=== PATIENT | male | born 1945 | race Caucasian/White ===

== ENCOUNTER 2020-12-28 21:38 | Inpatient (IN) ==
[2020-12-28 21:50] VITALS: BMI 23.4
[2020-12-28 22:14] LABS: BASOPHILS # (AUTO) 0.1 X10^3/uL (0.0-0.1); BASOPHILS % (AUTO) 0.8 % (0.2-1.0); EOSINOPHILS # (AUTO) 0.5 x10^3/uL (0.0-0.2); EOSINOPHILS % (AUTO) 5.9 % (0.9-2.9); HEMATOCRIT 39.3 % (42.0-54.0); HEMOGLOBIN 13.7 g/dL (13.5-18.0); LYMPHOCYTES # (AUTO) 1.7 X10^3/uL (1.3-2.9); LYMPHOCYTES % (AUTO) 19.8 % (21.0-51.0); MEAN CORPUSCULAR HEMOGLOBIN 30.7 pg (27.0-34.0); MEAN CORPUSCULAR HGB CONC 34.8 g/dL (33.0-35.0); MEAN CORPUSCULAR VOLUME 88.1 fL (80.0-100.0); MEAN PLATELET VOLUME 6.5 fL (7.4-11.0); MONOCYTES # (AUTO) 0.8 x10^3/uL (0.3-0.8); MONOCYTES % (AUTO) 9.2 % (0.0-13.0); NEUTROPHILS # (AUTO) 5.4 x10^3/uL (2.2-4.8); NEUTROPHILS % (AUTO) 64.3 % (42.0-75.0); PLATELET COUNT 173 X10^3/uL (150.0-450.0); RED BLOOD COUNT 4.46 X10^6/uL (4.7-6.0); RED CELL DISTRIBUTION WIDTH 12.9 % (11.6-16.5); WHITE BLOOD COUNT 8.5 X10^3/uL (3.6-10.0)
[2020-12-28 22:16] LABS: ABG ALLEN TEST POS; ABG HCO3 25.5 mmol/L (22-26)
--- NOTE | 2020-12-28 22:17 | DR.SOBA ---
HPI Time Seen Time Seen by Provider: 12/28/20 21:50 Primary Care Physician Primary Care Physician: ANH HPI Comment HPI Comment: Patient sent in to ED by PCP after report of bilobar PE from CT scan performed earlier. Patient notes that he "feels fine." Complaints Chief Complaint:: PT AMBULATORY IN ED WITH STATED C/O BLOOD CLOTS IN LUNGS. PT WAS SENT OVER BY [facility] WITH CONFORMATION OF BILATERAL PE. Source History Provided: Patient Mode of Arrival Mode of Arrival: Ambulatory Timing Onset of Chief Complaint: 12/28/20 PMH PMH Past Medical History: Yes Past Medical History: COPD Past Surgical History: Yes Surgical History: Appendectomy Past Surgical History Comment: CATARACT IMPLANTS PROSTATE Family History History of Family Medical Conditions: Yes Family Medical History: Diabetes Mellitus Social History Does patient currently use any type of tobacco product: No Have you used tobacco products in the last 12 months: No Type of Tobacco Use: None Does any household member use tobacco: No Alcohol Use: None Do you use any recreational Drugs:: No Lives With: Family Lives Where: Home Infectious screening In the last 2 months have you had wt loss of >10#?: NO Have you had fever, night sweats or hemotysis?: No Have you traveled outside the country in the last 6 months?: No Isolation: Droplet ROS Review of Systems Constitutional: See HPI PE Vital Signs Vitals: Temperature 97.0 F Pulse Rate 85 Respiratory Rate 24 Blood Pressure [Left Arm] 148/70 Blood Pressure 170/81 O2 Sat by Pulse Oximetry 96 General Limitations: No Limitations General Appearance: Alert and In No Apparent Distress Head Head Exam: Normal Inspection, Atraumatic and Normocephalic Eyes Eye exam: Normal Appearance, PERRL and EOMI ENT ENT Exam: Normal Exam Neck Neck Exam: Normal Inspection and Trachea Midline Chest Chest Inspection: Normal Inspection and Symmetric Chest Wall Rise Respiratory Respiratory Exam: Normal Lung Sounds Bilat Respiratory Exam: Bilateral: Clear to Auscultation Cardiovascular Cardiovascular Exam: Regular Rate, Normal Rhythm and Normal Heart Sounds COURSE Reevaluation 1st: Unchanged Consultation Consultation Comments: Spoke with Dr. Michelle who accepts patient for admission to his service. [facility] Labs Reviewed Laboratory Results Reviewed?: Yes Result Diagrams: 12/28/20 22:02 12/28/20 22:02 Laboratory: WBC 8.5 X10^3/uL (3.6-10.0) 12/28/20 22:02 RBC 4.46 X10^6/uL (4.7-6.0) L 12/28/20 22:02 Hgb 13.7 g/dL (13.5-18.0) 12/28/20 22:02 Hct 39.3 % (42.0-54.0) L 12/28/20 22:02 MCV 88.1 fL (80.0-100.0) 12/28/20 22:02 MCH 30.7 pg (27.0-34.0) 12/28/20 22:02 MCHC 34.8 g/dL (33.0-35.0) 12/28/20 22:02 RDW 12.9 % (11.6-16.5) 12/28/20 22:02 Plt Count 173 X10^3/uL (150.0-450.0) 12/28/20 22:02 MPV 6.5 fL (7.4-11.0) L 12/28/20 22:02 Neut % (Auto) 64.3 % (42.0-75.0) 12/28/20 22:02 Lymph % (Auto) 19.8 % (21.0-51.0) L 12/28/20 22:02 Josephine % (Auto) 9.2 % (0.0-13.0) 12/28/20 22:02 Eos % (Auto) 5.9 % (0.9-2.9) H 12/28/20 22:02 Baso % (Auto) 0.8 % (0.2-1.0) 12/28/20 22:02 Neut # (Auto) 5.4 x10^3/uL (2.2-4.8) H 12/28/20 22:02 Lymph # (Auto) 1.7 X10^3/uL (1.3-2.9) 12/28/20 22:02 Josephine # (Auto) 0.8 x10^3/uL (0.3-0.8) 12/28/20 22:02 Eos # (Auto) 0.5 x10^3/uL (0.0-0.2) H 12/28/20 22:02 Baso # (Auto) 0.1 X10^3/uL (0.0-0.1) 12/28/20 22:02 Absolute Nucleated RBC 0.0 /100WBC 12/28/20 22:02 PT 13.0 SECONDS (11.8-14.3) 12/28/20 22:02 INR Target Range - 12/28/20 22:02 INR 1.01 (0.8-1.3) 12/28/20 22:02 Sample Site Lra 12/28/20 22:14 ABG pH 7.470 (7.35-7.45) H 12/28/20 22:14 ABG pCO2 35.0 mmHg (35.0-45.0) 12/28/20 22:14 ABG pO2 72.0 mmHg (80.0-100.0) L 12/28/20 22:14 ABG HCO3 25.5 mmol/L (22-26) 12/28/20 22:14 ABG O2 Saturation 95.0 % (90-100) 12/28/20 22:14 ABG Base Excess 2.0 mmol/L (-2.0-2.0) 12/28/20 22:14 Alexey Test Pos 12/28/20 22:14 A-a Gradient 34.0 mmHg 12/28/20 22:14 FiO2 21.0 12/28/20 22:14 Blood Gas Comments Johnie well mt 12/28/20 22:14 Sodium 138 mmol/L (136-145) 12/28/20 22:02 Corrected Sodium 139 mmol/L (136-145) 12/28/20 22:02 Potassium 3.8 mmol/L (3.5-5.1) 12/28/20 22:02 Chloride 103 mmol/L (98-107) 12/28/20 22:02 Carbon Dioxide 27.6 mmol/L (21-32) 12/28/20 22:02 BUN 11 mg/dL (7-18) 12/28/20 22:02 Creatinine 1.06 mg/dL (0.70-1.30) 12/28/20 22:02 Est GFR (MDRD) Af Amer > 60 (>60) 12/28/20 22:02 Est GFR (MDRD) Non-Af > 60 (>60) 12/28/20 22:02 Glucose 122 mg/dL (65-99) H 12/28/20 22:02 Calcium 9.3 mg/dL (8.5-10.1) 12/28/20 22:02 Corrected Calcium 10.2 mg/dL (8.5-10.1) H 12/28/20 22:02 Total Bilirubin 0.40 mg/dL (0.2-1.0) 12/28/20 22:02 AST 19 Units/L (15-37) 12/28/20 22:02 ALT 40 Units/L (12-78) 12/28/20 22:02 Alkaline Phosphatase 111 Units/L (46-116) 12/28/20 22:02 Total Protein 6.3 g/dL (6.4-8.2) L 12/28/20 22:02 Albumin 2.9 g/dL (3.4-5.0) L 12/28/20 22:02 Globulin 3.4 g/dL (2.5-4.5) 12/28/20 22:02 Albumin/Globulin Ratio 0.9 Ratio (1.1-2.1) L 12/28/20 22:02 Opioid Opioid Risk Tool Age (Santino box if 16-45): No History of Preadolescent Sexual Abuse: No Total: 0 Total Score Risk Category: Low Risk Copyright: Bashir RANKIN predicting aberrant behaviors Diagnosis Discharge Problem: COPD with hypoxia Pulmonary embolism Qualifiers: Pulmonary embolism type: multiple subsegmental (without acute cor pulmonale) Qualified Code(s): I26.94 - Multiple subsegmental pulmonary emboli without acute cor pulmonale
[2020-12-28 22:23] LABS: ALANINE AMINOTRANSFERASE 40 Units/L (12-78); ALBUMIN 2.9 g/dL (3.4-5.0); ALKALINE PHOSPHATASE 111 Units/L (46-116); ASPARTATE AMINO TRANSFERASE 19 Units/L (15-37); BLOOD UREA NITROGEN 11 mg/dL (7-18); CALCIUM 9.3 mg/dL (8.5-10.1); CARBON DIOXIDE 27.6 mmol/L (21-32); CHLORIDE 103 mmol/L (98-107); COR CA(FOR HYPOALB) 10.2 mg/dL (8.5-10.1); COR NA(FOR HYPERGLY) 139 mmol/L (136-145); CREATININE 1.06 mg/dL (0.70-1.30); SODIUM 138 mmol/L (136-145); TOTAL PROTEIN 6.3 g/dL (6.4-8.2); eGFR NON BLACK RACES > 60 (>60)
[2020-12-28] MEDS ORDERED: HEPARIN SODIUM IN D5W 25,000 UNITS/500 ML BAG IV ONE (23:10)
[2020-12-28] MEDS ORDERED: HEPARIN SODIUM INJ 5000 UNITS ONE (23:10)
[2020-12-28] MEDS ORDERED: HEPARIN SODIUM INJ 5000 UNITS IVP ONE (23:24)
[2020-12-28] MEDS: HEPARIN SODIUM IN D5W 25,000 UNITS/500 ML BAG IV PRN (23:28)
[2020-12-28] MEDS ORDERED: NS 1000 ML 1,000 ML ONE (23:30)
[2020-12-28] MEDS: NS 1000 ML 1,000 ML IV SCH (23:37)
[2020-12-29] MEDS ORDERED: PROVENTIL NEB TX 0.083% 2.5MG/ 3ML NEB PRN (05:14)
[2020-12-29 06:24] LABS: BASOPHILS % (AUTO) 0.4 % (0.2-1.0); EOSINOPHILS # (AUTO) 0.5 x10^3/uL (0.0-0.2); EOSINOPHILS % (AUTO) 5.6 % (0.9-2.9); HEMATOCRIT 40.8 % (42.0-54.0); HEMOGLOBIN 13.9 g/dL (13.5-18.0); LYMPHOCYTES # (AUTO) 1.7 X10^3/uL (1.3-2.9); LYMPHOCYTES % (AUTO) 20.1 % (21.0-51.0); MEAN CORPUSCULAR HEMOGLOBIN 30.1 pg (27.0-34.0); MEAN CORPUSCULAR HGB CONC 34.1 g/dL (33.0-35.0); MEAN CORPUSCULAR VOLUME 88.2 fL (80.0-100.0); MEAN PLATELET VOLUME 6.8 fL (7.4-11.0); MONOCYTES # (AUTO) 0.5 x10^3/uL (0.3-0.8); MONOCYTES % (AUTO) 6.4 % (0.0-13.0); NEUTROPHILS # (AUTO) 5.7 x10^3/uL (2.2-4.8); NEUTROPHILS % (AUTO) 67.5 % (42.0-75.0); PLATELET COUNT 186 X10^3/uL (150.0-450.0); RED BLOOD COUNT 4.63 X10^6/uL (4.7-6.0); RED CELL DISTRIBUTION WIDTH 13.3 % (11.6-16.5); WHITE BLOOD COUNT 8.5 X10^3/uL (3.6-10.0)
[2020-12-29] MEDS ORDERED: HEPARIN SODIUM INJ 5000 UNITS ONE ×4 (06:44→21:11)
[2020-12-29 06:45] LABS: ALANINE AMINOTRANSFERASE 45 Units/L (12-78); ALKALINE PHOSPHATASE 116 Units/L (46-116); ASPARTATE AMINO TRANSFERASE 26 Units/L (15-37); BLOOD UREA NITROGEN 11 mg/dL (7-18); CALCIUM 8.8 mg/dL (8.5-10.1); CARBON DIOXIDE 29.5 mmol/L (21-32); CHLORIDE 104 mmol/L (98-107); COR CA(FOR HYPOALB) 9.6 mg/dL (8.5-10.1); COR NA(FOR HYPERGLY) 139 mmol/L (136-145); CREATININE 0.87 mg/dL (0.70-1.30); SODIUM 139 mmol/L (136-145); TOTAL PROTEIN 6.7 g/dL (6.4-8.2); eGFR NON BLACK RACES > 60 (>60)
[2020-12-29] MEDS ORDERED: HEPARIN SODIUM INJ 5000 UNITS IVP ONE ×2 (07:10→14:10)
[2020-12-29] MEDS ORDERED: PROVENTIL NEB TX 0.083% 2.5MG/ 3ML NEB SCH ×2 (09:00)
[2020-12-29] MEDS ORDERED: TIOTROPIUM BROMIDE INH SCH (09:00)
[2020-12-29] MEDS ORDERED: VITAMIN D (1.25MG) PO SCH (09:00)
[2020-12-29] MEDS ORDERED: SPIRIVA HANDIHALER (30 DOSE) IN SCH (09:00)
[2020-12-29] MEDS ORDERED: PATIENT'S HOME MEDICATION (Budesonide-Formoterol 160 MCG/4.5 MCG HFA aerosol inhaler) INH SCH (09:00)
[2020-12-29] MEDS: PULMICORT NEB TX 0.5 MG NEB SCH ×2 (09:07→20:13)
[2020-12-29 09:19] LABS: CREATINE KINASE 33 Units/L (39-308); LACTATE DEHYDROGENASE 198 Units/L (85-227); TROPONIN I < 0.02 ng/mL (0-1.5)
[2020-12-29 09:20] LABS: TOTAL PSA 4.22 ng/mL (0.13-4.0)
[2020-12-29] MEDS ORDERED: LOPRESSOR TAB 25 MG PO ONE (09:26)
--- NOTE | 2020-12-29 09:36 | DR.H&P ---
H&P - History & Physical for Day of: H&P Date: 12/28/20 - Chief Complaint Chief Complaint: SOB, BLOOD CLOT IN LUNGS - History of Present Illness History of Present Illness: PT IS 75 WM ER ADMISSION WITH CO SOB FOR SEVERAL WEEKS, PROGRESSIVE. PT HAD CT CHEST IN [place] THIS AM, DX WITH PE AND INSTRUCTED TO REPORT TO ER FOR EVALUATION. PT STATES HE HAS HAD SOB SINCE WITH PNEUMONIA 2-3 TIMES SINCE THEN. PT HAS SEEN DR GTZ FOR CARDIAC EVALUATION, PENDING HEART CATH. PT DENIES ANY PRIOR HISTORY OF CAD. PT HAS KNOWN COPD, BPH AND RENAL CALCULI. - Past Medical History Past Medical History: COPD, Kidney Stones - Past Surgical History Surgical History: Appendectomy - Family History Family Medical History: Diabetes Mellitus - Social History Does patient currently use any type of tobacco product: No Have you used tobacco products in the last 12 months: No Type of Tobacco Use: None Does any household member use tobacco: No Alcohol Use: None Drug Use: None - Medications Home Medications: erythromycin base Allergy (Verified 04/11/18 07:57) Sulfa (Sulfonamide Antibiotics) [SULFA] Allergy (Verified 04/11/18 07:57) CONTINUE taking the following medications ergocalciferol (vitamin D2) [Vitamin D2] 50,000 mcg PO 2XW 12/28/20 [History] ipratropium-albuterol 3 ml INHALATION Q6H 12/28/20 [History] potassium chloride 10 meq PO BID 12/28/20 [History] rosuvastatin 10 mg PO HS 12/28/20 [History] tamsulosin 0.4 mg PO DAILY 12/28/20 [History] - Review of Systems Constitutional: Weakness Eyes: No Symptoms Reported ENT: No Symptoms Reported Respiratory: SOB with Excertion Cardiovascular: Palpitations. denies: Edema Gastrointestinal: Constipation Genitourinary: No Symptoms Reported Musculoskeletal: No Symptoms Reported Skin: No Symptoms Reported Neurological: No Symptoms Reported - Physical Exam Vital Signs: Temperature 97.8 F Pulse Rate [Right] 121 Pulse Rate 109 Respiratory Rate 20 Blood Pressure [Left Arm] 168/86 Blood Pressure 142/73 O2 Sat by Pulse Oximetry 93 Oriented: Normal Eyes: Normal Ear: Normal Nose: Normal Throat: Normal Respiratory: RML Diminished, RLL Diminished, LML Diminished Cardiovascular: Tachycardia. negative: Edema : Normal Auscultation: Bowel Sounds: Normal Palpation: Normal Tenderness: Normal Skin: Decreased Turgur Musculoskeletal: Normal Psychiatric: Anxiety Affect: Anxious Speech Pattern: Clear, Appropriate - Assessment/Plan (1) Pulmonary embolism Qualifiers: Pulmonary embolism type: multiple subsegmental (without acute cor pulmonale) Qualified Code(s): I26.94 - Multiple subsegmental pulmonary emboli without acute cor pulmonale Status: Acute Plan: ADMIT, ACUTE PE WITH HYPOXIA AND SOB. HEPARIN DRIP, CXR ON ADMISSION. OBTAIN OUTPT CT REPORTS, SUPPLEMENTAL O2, ABG ON ADMISSION. CONTINUOUS CARDIAC MONITORING. ADMISSION LABS, VERIFY AND RESUME HOME MEDICATION (2) Dyspnea Qualifiers: Dyspnea type: shortness of breath Qualified Code(s): R06.02 - Shortness of breath Status: Acute (3) BPH (benign prostatic hyperplasia) Status: Acute (4) COPD with hypoxia Status: Acute - Allergies Allergies/Adverse Reactions: Allergies Allergy/AdvReac Type Severity Reaction Status Date / Time erythromycin base Allergy Verified 04/11/18 07:57 Sulfa (Sulfonamide Allergy Verified 04/11/18 07:57 Antibiotics) [SULFA]
[2020-12-29] MEDS: FLOMAX PO SCH (09:49)
[2020-12-29] MEDS: COLACE CAP 100 MG PO SCH (09:51)
[2020-12-29] MEDS ORDERED: LOPRESSOR INJ 5 MG AMP IVP ONE (11:26)
[2020-12-29] MEDS ORDERED: LANOXIN INJ IVP SCH (12:00)
--- NOTE | 2020-12-29 12:11 | VAS ---
HISTORYPT HX PESTUDYLOWER EXT VENOUS, BILATERALCOMPARISONNoneTECHNIQUEMultiple gorman scale and color flow Doppler images of the deep venous system were obtained of the right and left lower extremity.FINDINGSThe deep venous system of the right and left lower extremities were evaluated from the level of the common femoral vein through the popliteal vein. Normal color flow and augmentation can be observed on the right.. In addition, normal compression is seen throughout the deep venous system of the right leg.On real-time scanning in the left lower extremity echogenic thrombus is seen in the left common femoral vein and greater saphenous junction. These vessels are noncompressible and demonstrates echogenic thrombus without flow. The proximal mid and distal superficial femoral vein popliteal vein and anterior tibial vein and popliteal vein are all normally compressible with normal vascular flow..IMPRESSIONNegative for DVT in the right lower extremity..There is acute thrombus in the left common femoral and greater saphenous vein proximally. Findings are positive for DVT in the left common femoral and greater saphenous vein proximally. Normal flow is seen in the superficial femoral popliteal and anterior tibial vein on the left.Electronically signed by: ANAID METZGER (Dec 29, 2020 12:10:10)
[2020-12-29] MEDS ORDERED: XOPENEX 1.25 MG/3 ML NEBULE NEB ONE (12:44)
[2020-12-29] MEDS: LANOXIN INJ IVP SCH ×2 (13:19→17:21)
[2020-12-29] MEDS: XOPENEX 1.25 MG/3 ML NEBULE NEB SCH ×2 (13:45→20:13)
[2020-12-29] MEDS: NS 1000 ML 1,000 ML IV SCH ×2 (14:14→14:41)
[2020-12-29 14:21] LABS: ERYTHROCYTE SEDIMENTATION RATE 29 MM/HOUR (0-15)
[2020-12-29] MEDS: Atrovent NEB TX 0.02% NEB SCH (20:13)
[2020-12-29] MEDS: LOPRESSOR TAB 25 MG PO SCH (20:36)
[2020-12-29] MEDS: CRESTOR TAB 10 MG PO SCH (20:36)
[2020-12-29] MEDS: HEPARIN SODIUM IN D5W 25,000 UNITS/500 ML BAG IV PRN (23:32)
[2020-12-30] MEDS: NS 1000 ML 1,000 ML IV SCH ×2 (01:04→17:06)
[2020-12-30 03:34] LABS: BASOPHILS # (AUTO) 0.1 X10^3/uL (0.0-0.1); BASOPHILS % (AUTO) 0.9 % (0.2-1.0); EOSINOPHILS # (AUTO) 0.5 x10^3/uL (0.0-0.2); EOSINOPHILS % (AUTO) 5.7 % (0.9-2.9); HEMATOCRIT 37.9 % (42.0-54.0); LYMPHOCYTES # (AUTO) 1.5 X10^3/uL (1.3-2.9); LYMPHOCYTES % (AUTO) 17.2 % (21.0-51.0); MEAN CORPUSCULAR HEMOGLOBIN 30.1 pg (27.0-34.0); MEAN CORPUSCULAR HGB CONC 34.2 g/dL (33.0-35.0); MEAN CORPUSCULAR VOLUME 87.9 fL (80.0-100.0); MEAN PLATELET VOLUME 6.8 fL (7.4-11.0); MONOCYTES # (AUTO) 0.6 x10^3/uL (0.3-0.8); MONOCYTES % (AUTO) 7.3 % (0.0-13.0); NEUTROPHILS # (AUTO) 5.8 x10^3/uL (2.2-4.8); NEUTROPHILS % (AUTO) 68.9 % (42.0-75.0); PLATELET COUNT 192 X10^3/uL (150.0-450.0); RED BLOOD COUNT 4.31 X10^6/uL (4.7-6.0); RED CELL DISTRIBUTION WIDTH 13.3 % (11.6-16.5); WHITE BLOOD COUNT 8.4 X10^3/uL (3.6-10.0)
[2020-12-30 03:44] LABS: ALANINE AMINOTRANSFERASE 44 Units/L (12-78); ALBUMIN 2.6 g/dL (3.4-5.0); ALKALINE PHOSPHATASE 100 Units/L (46-116); ASPARTATE AMINO TRANSFERASE 18 Units/L (15-37); BLOOD UREA NITROGEN 8 mg/dL (7-18); CALCIUM 8.7 mg/dL (8.5-10.1); CARBON DIOXIDE 25.5 mmol/L (21-32); CHLORIDE 106 mmol/L (98-107); COR CA(FOR HYPOALB) 9.8 mg/dL (8.5-10.1); COR NA(FOR HYPERGLY) 139 mmol/L (136-145); CREATININE 0.87 mg/dL (0.70-1.30); SODIUM 138 mmol/L (136-145); TOTAL PROTEIN 5.9 g/dL (6.4-8.2); eGFR NON BLACK RACES > 60 (>60)
[2020-12-30] MEDS: XOPENEX 1.25 MG/3 ML NEBULE NEB SCH ×3 (05:08→20:50)
[2020-12-30] MEDS: Atrovent NEB TX 0.02% NEB SCH ×2 (08:20→20:50)
[2020-12-30] MEDS: PULMICORT NEB TX 0.5 MG NEB SCH ×2 (08:20→20:50)
[2020-12-30] MEDS: FLOMAX PO SCH (08:21)
[2020-12-30] MEDS: COLACE CAP 100 MG PO SCH (08:21)
[2020-12-30] MEDS: LOPRESSOR TAB 25 MG PO SCH ×2 (08:21→20:17)
[2020-12-30] MEDS: ZOLOFT PO SCH (14:31)
[2020-12-30 14:55] LABS: ABG ALLEN TEST POS; ABG BASE EXCESS 0.5 mmol/L (-2.0-2.0); ABG HCO3 24.6 mmol/L (22-26)
[2020-12-30] MEDS: HEPARIN SODIUM IN D5W 25,000 UNITS/500 ML BAG IV PRN (18:09)
[2020-12-30] MEDS: CRESTOR TAB 10 MG PO SCH (20:17)
[2020-12-31] MEDS: NS 1000 ML 1,000 ML IV SCH ×3 (02:59→19:32)
[2020-12-31] MEDS: XOPENEX 1.25 MG/3 ML NEBULE NEB SCH ×3 (05:56→20:17)
[2020-12-31 06:11] LABS: BASOPHILS % (AUTO) 0.5 % (0.2-1.0); EOSINOPHILS # (AUTO) 0.4 x10^3/uL (0.0-0.2); EOSINOPHILS % (AUTO) 5.8 % (0.9-2.9); HEMATOCRIT 37.2 % (42.0-54.0); HEMOGLOBIN 12.7 g/dL (13.5-18.0); LYMPHOCYTES # (AUTO) 1.3 X10^3/uL (1.3-2.9); LYMPHOCYTES % (AUTO) 17.8 % (21.0-51.0); MEAN CORPUSCULAR HEMOGLOBIN 29.9 pg (27.0-34.0); MEAN CORPUSCULAR HGB CONC 34.1 g/dL (33.0-35.0); MEAN CORPUSCULAR VOLUME 87.8 fL (80.0-100.0); MONOCYTES # (AUTO) 0.6 x10^3/uL (0.3-0.8); MONOCYTES % (AUTO) 7.7 % (0.0-13.0); NEUTROPHILS # (AUTO) 5.1 x10^3/uL (2.2-4.8); NEUTROPHILS % (AUTO) 68.2 % (42.0-75.0); PLATELET COUNT 211 X10^3/uL (150.0-450.0); RED BLOOD COUNT 4.24 X10^6/uL (4.7-6.0); RED CELL DISTRIBUTION WIDTH 13.2 % (11.6-16.5); WHITE BLOOD COUNT 7.5 X10^3/uL (3.6-10.0)
[2020-12-31 06:17] LABS: ALANINE AMINOTRANSFERASE 41 Units/L (12-78); ALBUMIN 2.8 g/dL (3.4-5.0); ALKALINE PHOSPHATASE 107 Units/L (46-116); ASPARTATE AMINO TRANSFERASE 20 Units/L (15-37); BLOOD UREA NITROGEN 9 mg/dL (7-18); CALCIUM 9.1 mg/dL (8.5-10.1); CARBON DIOXIDE 24.4 mmol/L (21-32); CHLORIDE 104 mmol/L (98-107); COR CA(FOR HYPOALB) 10.1 mg/dL (8.5-10.1); COR NA(FOR HYPERGLY) 139 mmol/L (136-145); CREATININE 0.91 mg/dL (0.70-1.30); SODIUM 139 mmol/L (136-145); TOTAL PROTEIN 6.3 g/dL (6.4-8.2); eGFR NON BLACK RACES > 60 (>60)
[2020-12-31] MEDS: PULMICORT NEB TX 0.5 MG NEB SCH ×2 (08:59→20:17)
[2020-12-31] MEDS: Atrovent NEB TX 0.02% NEB SCH ×2 (08:59→20:17)
[2020-12-31] MEDS: ZOLOFT PO SCH (09:23)
[2020-12-31] MEDS: FLOMAX PO SCH (09:23)
[2020-12-31] MEDS: LOPRESSOR TAB 25 MG PO SCH ×2 (09:23→20:35)
[2020-12-31] MEDS: COLACE CAP 100 MG PO SCH (09:23)
[2020-12-31] MEDS ORDERED: DULCOLAX SUPPOSITORY 10 MG RECTAL ONE (09:57)
[2020-12-31] MEDS ORDERED: ELIQUIS PO SCH (11:00)
[2020-12-31] MEDS ORDERED: ELIQUIS PO NR (14:15)
[2020-12-31] MEDS ORDERED: MICRO K EXTEN CAP 10 MEQ PO PRN (19:43)
[2020-12-31] MEDS ORDERED: POTASSIUM CHL 60 MEQ/NS 0.45% 500 ML IV PRN (19:43)
[2020-12-31] MEDS ORDERED: POTASSIUM CHLORIDE LIQ 20 MEQ UDC PO PRN (19:43)
[2020-12-31] MEDS ORDERED: K-RIDER 10 MEQ/NS 100 ML 10 MEQ/100 ML BAG IV PRN (19:43)
[2020-12-31] MEDS ORDERED: K-DUR TAB 20 MEQ PO PRN (19:43)
[2020-12-31] MEDS ORDERED: POTASSIUM CHL 40 MEQ/NS 0.45% 500 ML IV PRN (19:43)
[2020-12-31] MEDS ORDERED: KLOR-CON PO PRN (19:43)
[2020-12-31] MEDS: MAGNESIUM SULFATE 1 GRAM/100 mL PREMIX 1 GM/100 ML BAG IV PRN ×2 (20:34→21:37)
[2020-12-31] MEDS: ELIQUIS PO SCH (20:35)
[2020-12-31] MEDS: CRESTOR TAB 10 MG PO SCH (20:35)
[2021-01-01] MEDS: XOPENEX 1.25 MG/3 ML NEBULE NEB SCH (05:00)
[2021-01-01] MEDS: NS 1000 ML 1,000 ML IV SCH (05:37)
[2021-01-01 06:01] VITALS: BP 121/69
[2021-01-01 06:19] LABS: ALANINE AMINOTRANSFERASE 45 Units/L (12-78); ALBUMIN 2.8 g/dL (3.4-5.0); ALKALINE PHOSPHATASE 111 Units/L (46-116); ASPARTATE AMINO TRANSFERASE 27 Units/L (15-37); BLOOD UREA NITROGEN 9 mg/dL (7-18); CALCIUM 8.8 mg/dL (8.5-10.1); CHLORIDE 106 mmol/L (98-107); COR CA(FOR HYPOALB) 9.8 mg/dL (8.5-10.1); CREATININE 0.98 mg/dL (0.70-1.30); MAGNESIUM 2.1 mg/dL (1.7-2.9); SODIUM 139 mmol/L (136-145); TOTAL PROTEIN 6.3 g/dL (6.4-8.2); eGFR NON BLACK RACES > 60 (>60)
[2021-01-01 06:21] LABS: BASOPHILS % (AUTO) 0.4 % (0.2-1.0); EOSINOPHILS # (AUTO) 0.4 x10^3/uL (0.0-0.2); EOSINOPHILS % (AUTO) 4.7 % (0.9-2.9); HEMATOCRIT 37.2 % (42.0-54.0); HEMOGLOBIN 12.5 g/dL (13.5-18.0); LYMPHOCYTES # (AUTO) 1.9 X10^3/uL (1.3-2.9); LYMPHOCYTES % (AUTO) 21.9 % (21.0-51.0); MEAN CORPUSCULAR HEMOGLOBIN 29.7 pg (27.0-34.0); MEAN CORPUSCULAR HGB CONC 33.6 g/dL (33.0-35.0); MEAN CORPUSCULAR VOLUME 88.4 fL (80.0-100.0); MEAN PLATELET VOLUME 6.8 fL (7.4-11.0); MONOCYTES # (AUTO) 0.7 x10^3/uL (0.3-0.8); MONOCYTES % (AUTO) 8.3 % (0.0-13.0); NEUTROPHILS # (AUTO) 5.6 x10^3/uL (2.2-4.8); NEUTROPHILS % (AUTO) 64.7 % (42.0-75.0); PLATELET COUNT 220 X10^3/uL (150.0-450.0); RED CELL DISTRIBUTION WIDTH 13.1 % (11.6-16.5); WHITE BLOOD COUNT 8.7 X10^3/uL (3.6-10.0)
[2021-01-01] MEDS: ELIQUIS PO SCH (08:31)
[2021-01-01] MEDS: COLACE CAP 100 MG PO SCH (08:31)
[2021-01-01] MEDS: LOPRESSOR TAB 25 MG PO SCH (08:32)
[2021-01-01] MEDS: FLOMAX PO SCH (08:32)
[2021-01-01] MEDS: ZOLOFT PO SCH (08:32)
[2021-01-01] MEDS: PULMICORT NEB TX 0.5 MG NEB SCH (08:50)
[2021-01-01] MEDS: Atrovent NEB TX 0.02% NEB SCH (08:50)
--- NOTE | 2021-01-01 10:39 | W.DIS.FURT ---
Summary of Discharge Discharge Summary of Date Date of Exam: 01/01/21 Admission Date Date of Admission: 12/28/20 Admission Diagnosis Patient Problems (Updated 12/29/20 @ 09:39 by SEPIDEH LYNNE) Dyspnea (Acute) R06.00 COPD with hypoxia (Acute) J44.9, R09.02 Pulmonary embolism (Acute) I26.99 BPH (benign prostatic hyperplasia) (Acute) N40.0 Hospital Course: Pt is a 75-year-old white male admitted for pulmonary emboli on Right, DVT left lower extremity deep vein thrombosis, and paroxysmal atrial fibrillation. He was started on heparin drip and was converted to eliquis for anticoagulation. He re sponded well to treatment with improved respiratory symptoms and back to baseline O2 requirement of 2 L of supplemental oxygen that he was previously on due to history of chronic obstructive pulmonary disease. He was treated with Lopressor 25mg BID that has controlled his heart rate. He was also started on zoloft for his mood. Labs/imaging: Wbc 8.7, Hgb 12.5, Plt 220, Na 139, K 4, Cr 0.98, Glucose 105. Rx Eliquis, Lopressor, and Zoloft. CT Chest did recommend repeat CT in 90 days due to lung parenchymal abnormalities. Pt was discharged in stable condition, instructed to follow up with pcp in 3-5 days. Vital Signs: Vital Signs (72 hours) 12/29/20 11:00 12/29/20 12:00 12/29/20 12:20 Temperature Pulse Rate Pulse Rate [Right] 92 H 87 Respiratory Rate 20 22 Blood Pressure 188/80 Blood Pressure [Left Arm] 188/80 110/63 O2 Sat by Pulse Oximetry 94 L 93 L 12/29/20 13:00 12/29/20 13:19 12/29/20 13:45 Temperature Pulse Rate 123 H 120 H Pulse Rate [Right] 104 H Respiratory Rate 22 Blood Pressure Blood Pressure [Left Arm] 113/70 O2 Sat by Pulse Oximetry 94 L 94 L 12/29/20 14:00 12/29/20 15:00 12/29/20 16:00 Temperature 97.8 F Pulse Rate Pulse Rate [Right] 76 74 87 Respiratory Rate 20 20 22 Blood Pressure Blood Pressure [Left Arm] 136/72 127/71 141/70 O2 Sat by Pulse Oximetry 94 L 96 97 12/29/20 17:00 12/29/20 17:21 12/29/20 18:00 Temperature Pulse Rate 76 Pulse Rate [Right] 76 79 Respiratory Rate 20 20 Blood Pressure Blood Pressure [Left Arm] 124/67 134/67 O2 Sat by Pulse Oximetry 94 L 96 12/29/20 19:00 12/29/20 20:00 12/29/20 20:13 Temperature 98.0 F Pulse Rate 83 Pulse Rate [Right] 70 74 Respiratory Rate 18 20 Blood Pressure Blood Pressure [Left Arm] 130/60 115/58 O2 Sat by Pulse Oximetry 96 96 97 12/29/20 21:00 12/29/20 22:00 12/29/20 23:00 Temperature 97.7 F Pulse Rate Pulse Rate [Right] 76 74 70 Respiratory Rate 20 20 20 Blood Pressure Blood Pressure [Left Arm] 121/59 136/73 157/70 O2 Sat by Pulse Oximetry 96 94 L 98 12/30/20 00:00 12/30/20 01:00 12/30/20 02:00 Temperature Pulse Rate Pulse Rate [Right] 71 62 73 Respiratory Rate 20 20 20 Blood Pressure Blood Pressure [Left Arm] 143/70 133/68 106/58 O2 Sat by Pulse Oximetry 95 96 96 12/30/20 03:00 12/30/20 04:00 12/30/20 05:00 Temperature 98.5 F Pulse Rate Pulse Rate [Right] 70 72 75 Respiratory Rate 18 18 20 Blood Pressure Blood Pressure [Left Arm] 131/72 128/57 129/71 O2 Sat by Pulse Oximetry 96 94 L 95 12/30/20 05:08 12/30/20 06:00 12/30/20 07:00 Temperature Pulse Rate 80 Pulse Rate [Right] 68 81 Respiratory Rate 18 19 Blood Pressure Blood Pressure [Left Arm] 150/68 134/70 O2 Sat by Pulse Oximetry 98 98 97 12/30/20 08:00 12/30/20 08:20 12/30/20 09:00 Temperature 98.0 F Pulse Rate 88 Pulse Rate [Right] 88 73 Respiratory Rate 19 18 Blood Pressure Blood Pressure [Left Arm] 135/60 121/66 O2 Sat by Pulse Oximetry 96 95 96 12/30/20 10:00 12/30/20 11:00 12/30/20 12:00 Temperature 98.3 F Pulse Rate Pulse Rate [Right] 72 73 73 Respiratory Rate 19 19 20 Blood Pressure Blood Pressure [Left Arm] 153/70 131/61 133/63 O2 Sat by Pulse Oximetry 96 97 96 12/30/20 13:00 12/30/20 14:00 12/30/20 15:00 Temperature Pulse Rate Pulse Rate [Right] 79 80 81 Respiratory Rate 18 18 19 Blood Pressure Blood Pressure [Left Arm] 116/63 118/62 120/59 O2 Sat by Pulse Oximetry 97 97 96 12/30/20 16:00 12/30/20 17:00 12/30/20 18:00 Temperature 99.4 F Pulse Rate Pulse Rate [Right] 81 79 80 Respiratory Rate 18 20 20 Blood Pressure Blood Pressure [Left Arm] 125/63 138/65 135/66 O2 Sat by Pulse Oximetry 96 95 96 12/30/20 19:00 12/30/20 20:00 12/30/20 20:50 Temperature 98.2 F Pulse Rate 72 Pulse Rate [Right] 83 82 Respiratory Rate 21 20 Blood Pressure Blood Pressure [Left Arm] 127/62 132/67 O2 Sat by Pulse Oximetry 94 L 93 L 95 12/30/20 21:00 12/30/20 22:00 12/30/20 23:00 Temperature 97.7 F Pulse Rate Pulse Rate [Right] 68 70 90 Respiratory Rate 20 20 20 Blood Pressure Blood Pressure [Left Arm] 137/60 135/67 138/68 O2 Sat by Pulse Oximetry 91 L 98 12/31/20 00:00 12/31/20 01:00 12/31/20 02:00 Temperature Pulse Rate Pulse Rate [Right] 72 68 69 Respiratory Rate 20 18 18 Blood Pressure Blood Pressure [Left Arm] 132/79 133/72 129/68 O2 Sat by Pulse Oximetry 94 L 90 L 93 L 12/31/20 03:00 12/31/20 04:00 12/31/20 05:00 Temperature 98.2 F Pulse Rate Pulse Rate [Right] 59 L 73 95 H Respiratory Rate 18 19 19 Blood Pressure Blood Pressure [Left Arm] 104/57 134/68 136/67 O2 Sat by Pulse Oximetry 93 L 95 97 12/31/20 05:56 12/31/20 06:00 12/31/20 07:00 Temperature 97.5 F L Pulse Rate 77 Pulse Rate [Right] 86 88 Respiratory Rate 20 20 Blood Pressure Blood Pressure [Left Arm] 153/74 140/71 O2 Sat by Pulse Oximetry 97 97 92 L 12/31/20 08:00 12/31/20 08:59 12/31/20 09:00 Temperature Pulse Rate 80 Pulse Rate [Right] 73 76 Respiratory Rate 20 19 Blood Pressure Blood Pressure [Left Arm] 143/68 139/79 O2 Sat by Pulse Oximetry 92 L 95 91 L 12/31/20 10:00 12/31/20 11:00 12/31/20 12:00 Temperature 98.3 F Pulse Rate Pulse Rate [Right] 70 73 78 Respiratory Rate 18 18 19 Blood Pressure Blood Pressure [Left Arm] 146/70 139/67 154/73 O2 Sat by Pulse Oximetry 93 L 96 87 L 12/31/20 13:00 12/31/20 14:00 12/31/20 15:00 Temperature 98.3 F Pulse Rate Pulse Rate [Right] 71 68 70 Respiratory Rate 18 18 18 Blood Pressure Blood Pressure [Left Arm] 117/63 124/64 139/66 O2 Sat by Pulse Oximetry 92 L 99 89 L 12/31/20 16:00 12/31/20 17:00 12/31/20 18:00 Temperature 98.3 F Pulse Rate Pulse Rate [Right] 85 63 81 Respiratory Rate 19 18 18 Blood Pressure Blood Pressure [Left Arm] 118/58 136/66 117/59 O2 Sat by Pulse Oximetry 93 L 94 L 95 12/31/20 19:00 12/31/20 20:00 12/31/20 20:17 Temperature 98.4 F Pulse Rate 80 Pulse Rate [Right] 74 76 Respiratory Rate 18 18 Blood Pressure Blood Pressure [Left Arm] 128/70 146/69 O2 Sat by Pulse Oximetry 95 96 93 L 12/31/20 21:00 12/31/20 22:00 12/31/20 23:00 Temperature 98.2 F Pulse Rate Pulse Rate [Right] 64 63 64 Respiratory Rate 19 18 18 Blood Pressure Blood Pressure [Left Arm] 117/67 124/74 111/59 O2 Sat by Pulse Oximetry 96 96 96 01/01/21 00:00 01/01/21 01:00 01/01/21 02:00 Temperature Pulse Rate Pulse Rate [Right] 65 78 80 Respiratory Rate 19 19 20 Blood Pressure Blood Pressure [Left Arm] 108/59 104/63 110/65 O2 Sat by Pulse Oximetry 96 90 L 90 L 01/01/21 03:00 01/01/21 04:00 01/01/21 05:00 Temperature 98.3 F Pulse Rate 80 Pulse Rate [Right] 64 70 82 Respiratory Rate 20 20 20 Blood Pressure Blood Pressure [Left Arm] 106/58 118/67 118/65 O2 Sat by Pulse Oximetry 95 95 94 L 01/01/21 06:00 01/01/21 08:50 Temperature Pulse Rate 74 Pulse Rate [Right] 75 Respiratory Rate 20 Blood Pressure Blood Pressure [Left Arm] 121/69 O2 Sat by Pulse Oximetry 94 L 94 L Labs: Laboratory Last Values WBC 8.7 X10^3/uL (3.6-10.0) 01/01/21 05:30 RBC 4.20 X10^6/uL (4.7-6.0) L 01/01/21 05:30 Hgb 12.5 g/dL (13.5-18.0) L 01/01/21 05:30 Hct 37.2 % (42.0-54.0) L 01/01/21 05:30 MCV 88.4 fL (80.0-100.0) 01/01/21 05:30 MCH 29.7 pg (27.0-34.0) 01/01/21 05:30 MCHC 33.6 g/dL (33.0-35.0) 01/01/21 05:30 RDW 13.1 % (11.6-16.5) 01/01/21 05:30 Plt Count 220 X10^3/uL (150.0-450.0) 01/01/21 05:30 MPV 6.8 fL (7.4-11.0) L 01/01/21 05:30 Neut % (Auto) 64.7 % (42.0-75.0) 01/01/21 05:30 Lymph % (Auto) 21.9 % (21.0-51.0) 01/01/21 05:30 [place] % (Auto) 8.3 % (0.0-13.0) 01/01/21 05:30 Eos % (Auto) 4.7 % (0.9-2.9) H 01/01/21 05:30 Baso % (Auto) 0.4 % (0.2-1.0) 01/01/21 05:30 Neut # (Auto) 5.6 x10^3/uL (2.2-4.8) H 01/01/21 05:30 Lymph # (Auto) 1.9 X10^3/uL (1.3-2.9) 01/01/21 05:30 [place] # (Auto) 0.7 x10^3/uL (0.3-0.8) 01/01/21 05:30 Eos # (Auto) 0.4 x10^3/uL (0.0-0.2) H 01/01/21 05:30 Baso # (Auto) 0.0 X10^3/uL (0.0-0.1) 01/01/21 05:30 Absolute Nucleated RBC 0.0 /100WBC 01/01/21 05:30 ESR 29 MM/HOUR (0-15) H 12/29/20 13:03 PT 13.0 SECONDS (11.8-14.3) 12/28/20 22:02 INR Target Range - 12/28/20 22:02 INR 1.01 (0.8-1.3) 12/28/20 22:02 APTT 34.0 SECONDS (22.9-36.5) 01/01/21 05:30 PTT Comment - 01/01/21 05:30 Sample Site Lrad 12/30/20 14:48 ABG pH 7.430 (7.35-7.45) 12/30/20 14:48 ABG pCO2 37.0 mmHg (35.0-45.0) 12/30/20 14:48 ABG pO2 78.0 mmHg (80.0-100.0) L 12/30/20 14:48 ABG HCO3 24.6 mmol/L (22-26) 12/30/20 14:48 ABG O2 Saturation 96.0 % (90-100) 12/30/20 14:48 ABG Base Excess 0.5 mmol/L (-2.0-2.0) 12/30/20 14:48 Alexey Test Pos 12/30/20 14:48 A-a Gradient 75.0 mmHg 12/30/20 14:48 FiO2 28.0 12/30/20 14:48 Blood Gas Comments Pt krishna well 12/30/20 14:48 Sodium 139 mmol/L (136-145) 01/01/21 05:30 Corrected Sodium TNP 01/01/21 05:30 Potassium 4.0 mmol/L (3.5-5.1) 01/01/21 05:30 Chloride 106 mmol/L (98-107) 01/01/21 05:30 Carbon Dioxide 26.0 mmol/L (21-32) 01/01/21 05:30 BUN 9 mg/dL (7-18) 01/01/21 05:30 Creatinine 0.98 mg/dL (0.70-1.30) 01/01/21 05:30 Est GFR (MDRD) Af Amer > 60 (>60) 01/01/21 05:30 Est GFR (MDRD) Non-Af > 60 (>60) 01/01/21 05:30 Glucose 105 mg/dL (65-99) H 01/01/21 05:30 POC Glucose (mg/dL) 111 mg/dL (65-99) H 01/01/21 05:39 Calcium 8.8 mg/dL (8.5-10.1) 01/01/21 05:30 Corrected Calcium 9.8 mg/dL (8.5-10.1) 01/01/21 05:30 Magnesium 2.1 mg/dL (1.7-2.9) 01/01/21 05:30 Total Bilirubin 0.40 mg/dL (0.2-1.0) 01/01/21 05:30 AST 27 Units/L (15-37) 01/01/21 05:30 ALT 45 Units/L (12-78) 01/01/21 05:30 Alkaline Phosphatase 111 Units/L (46-116) 01/01/21 05:30 Lactate Dehydrogenase 198 Units/L (85-227) 12/29/20 05:40 Creatine Kinase 33 Units/L (39-308) L 12/29/20 05:40 CK-MB (CK-2) 1.0 ng/mL (0-4.0) 12/29/20 05:40 CK/CKMB % Calc 3.0 % (<4) 12/29/20 05:40 Troponin I < 0.02 ng/mL (0-1.5) 12/29/20 05:40 C-Reactive Protein 20.50 mg/L (0-3.0) H 12/29/20 13:03 Total Protein 6.3 g/dL (6.4-8.2) L 01/01/21 05:30 Albumin 2.8 g/dL (3.4-5.0) L 01/01/21 05:30 Globulin 3.5 g/dL (2.5-4.5) 01/01/21 05:30 Albumin/Globulin Ratio 0.8 Ratio (1.1-2.1) L 01/01/21 05:30 Total PSA 4.22 ng/mL (0.13-4.0) H 12/29/20 05:40 Stool Description 10g brn formed 12/31/20 12:18 Stl Occult Blood (IFOB) Negative (NEGATIVE) 12/31/20 12:18 SARS-CoV-2 (PCR) Negative (NEGATIVE) 12/28/20 22:57 Influenza Type A (PCR) Negative (NEGATIVE) 12/28/20 22:57 Influenza Type B (PCR) Negative (NEGATIVE) 12/28/20 22:57 RSV (PCR) Negative (NEGATIVE) 12/28/20 22:57 Reason For Visit: BILOBAR PE Discharge Date Discharge Date: 01/01/21 Discharge Diagnosis All Active Problems (Updated 12/29/20 @ 09:39 by SEPIDEH LYNNE) Pneumonia (Acute) Acute right flank pain (Acute) Calculus of distal right ureter (Acute) Urinary obstruction (Acute) Pneumonia, viral (Acute) Dyspnea (Acute) COPD with hypoxia (Acute) Pulmonary embolism (Acute) BPH (benign prostatic hyperplasia) (Acute) Plan of Treatment: Continue with present treatment and follow up plan. Pt is to keep follow up appointment as instructed and take medications as ordered. Discharge Medications Discharge Medications: erythromycin base Allergy (Verified 04/11/18 07:57) Sulfa (Sulfonamide Antibiotics) [SULFA] Allergy (Verified 04/11/18 07:57) CONTINUE taking the following medications ergocalciferol (vitamin D2) [Vitamin D2] 50,000 mcg PO 2XW 12/28/20 [History] ipratropium-albuterol 3 ml INHALATION Q6H 12/28/20 [History] potassium chloride 10 meq PO BID 12/28/20 [History] rosuvastatin 10 mg PO HS 12/28/20 [History] tamsulosin 0.4 mg PO DAILY 12/28/20 [History] Spiriva with HandiHaler 18 mcg INHALATION DAILY 12/29/20 [History] New Prescriptions apixaban [Eliquis] 5 mg PO BID #60 tab 12/31/20 [Rx] metoprolol tartrate 25 mg PO BID #60 tab 12/31/20 [Rx] sertraline 25 mg PO DAILY #30 tab 12/31/20 [Rx] Discharge Disposition Discharge Disposition: Home Discharge Condition: Stable Discharge Plan Discharge Plan Hospital Course: Pt is a 75-year-old white male admitted for pulmonary emboli on Right, DVT left lower extremity deep vein thrombosis, and paroxysmal atrial fibrillation. He was started on heparin drip and was converted to eliquis for anticoagulation. He responded well to treatment with improved respiratory symptoms and back to baseline O2 requirement of 2 L of supplemental oxygen that he was previously on due to history of chronic obstructive pulmonary disease. He was treated with Lopressor 25mg BID that has controlled his heart rate. He was also started on zoloft for his mood. Labs/imaging: Wbc 8.7, Hgb 12.5, Plt 220, Na 139, K 4, Cr 0.98, Glucose 105. Rx Eliquis, Lopressor, and Zoloft. CT Chest did recommend repeat CT in 90 days due to lung parenchymal abnormalities. Pt was discharged in stable condition, instructed to follow up with pcp in 3-5 days. Patient Disposition: 01 HOME, SELF-CARE Condition: Stable Health Concerns: Post Hospitalization: new medications and changes needed to prevent readmission or further decline. Pt educated and given instructions on all concerns. Care Plan Goals: Problem: Respiratory Complications Goal: Improved Uncomplicated Respiratory Status Instructions: Follow provided instructions. Follow up with primary physician as directed. Contact primary care physician or report to the closest Emergency Room if condition worsens. Plan of Treatment: Continue with present treatment and follow up plan. Pt is to keep follow up appointment as instructed and take medications as ordered. Prescriptions: New metoprolol tartrate 25 mg Tablet 25 mg PO BID Qty: 60 RF: 0 sertraline 50 mg Tablet 25 mg PO DAILY Qty: 30 RF: 0 Eliquis 5 mg Tablet 5 mg PO BID Qty: 60 RF: 0 Continued Spiriva with HandiHaler 18 MCG capsule, w/inhalation device 18 mcg INH DAILY RF: 0 budesonide-formoterol [Symbicort] 160 MCG/4.5 MCG HFA aerosol inhaler 160 mcg INH DAILY RF: 0 albuterol sulfate 90 mcg/actuation aerosol powdr breath activated 2 inh IN Q6H PRN (Reason: shortness of breath or wheezing) Qty: 1 RF: 0 potassium chloride 10 mEq capsule, extended release 10 meq PO BID RF: 0 ipratropium-albuterol 0.5 mg-3 mg(2.5 mg base)/3 mL solution for nebulization 3 ml INHALATION Q6H RF: 0 tamsulosin 0.4 mg capsule 0.4 mg PO DAILY RF: 0 ergocalciferol (vitamin D2) [Vitamin D2] 1,250 mcg (50,000 unit) capsule 50,000 mcg PO 2XW RF: 0 rosuvastatin 10 mg tablet 10 mg PO HS RF: 0 Spiriva with HandiHaler 18 mcg Capsule, W/Inhalation Device 18 mcg INHALATION DAILY RF: 0 Follow ups/Referrals Follow ups/Referrals: ESPIDEH LYNNE [Primary Care Provider] - 3 days Instructions Instructions: Shortness of Breath, Adult, [id number], Home Oxygen Use, Adult, Pulmonary Embolism, Chronic Obstructive Pulmonary Disease, [id number], Activated Clotting Time Test, Chronic Obstructive Pulmonary Disease Exacerbation, [id number], Bleeding Precautions When on Anticoagulant Therapy, Adult, Form - COPD Action Plan, Partial Thromboplastin Time Test, Deep Vein Thrombosis, Atrial Fibrillation, [id number]-[id number], Venous Thromboembolism Prevention Activity Restrictions/Additional Instructions: USE SUPPLEMENTAL O2 FU UP WITH SCIENTIFIC MANAGER FU WITH ULISSES, FOR EVALUATION AFIB CONTINUE ELIQUIS, METOPROLOL Stand Alone Forms: Excuse From Work or School, Precautions for COVID19, Patient Portal, Social Distancing
[2021-01-08 10:21] LABS: ANTI-NUCLEAR ANTIBODY TEST None Detected (None Detected)
[2021-01-08 10:29] LABS: PROTEIN C ACTIVITY 164 % (83-168)
[2021-01-10 07:50] LABS: REPTILASE TIME 14.9; THROMBIN TIME 23.9
[2021-01-10 07:51] LABS: PTT-D HEPARIN NEUT 39
[2021-01-12 06:27] LABS: PROTHROMBIN G20210A Negative
== END 2021-01-01 11:40 | disposition home or self-care (01) | DRG 176 ==
LOC: ER 21:45 → OBS 22:47 → MED/SURG 12-29 14:50
PROVIDERS: ADMIT Family Medicine; ATTEND Internal Medicine
DX: I48.91 Unspecified atrial fibrillation; R79.1 Abnormal coagulation profile; R79.82 Elevated C-reactive protein (CRP); I82.412 Acute embolism and thrombosis of left femoral vein; R06.02 Shortness of breath; R70.0 Elevated erythrocyte sedimentation rate; I82.492 Acute embolism and thrombosis of other specified deep vein of left lower extremity; N40.0 Benign prostatic hyperplasia without lower urinary tract symptoms; R97.20 Elevated prostate specific antigen [PSA]; I26.94 Multiple subsegmental thrombotic pulmonary emboli without acute cor pulmonale; Z20.822 Contact with and (suspected) exposure to COVID-19; J44.9 Chronic obstructive pulmonary disease, unspecified; F41.8 Other specified anxiety disorders; R26.89 Other abnormalities of gait and mobility

== ENCOUNTER 2021-03-06 15:03 | Observation (INO) ==
[2021-03-06 15:12] VITALS: BMI 24.5
--- NOTE | 2021-03-06 15:17 | DR.SOBA ---
HPI Time Seen Time Seen by Provider: 03/06/21 15:17 Primary Care Physician Primary Care Physician: SERENITY UNGER HPI Comment HPI Comment: 76 yo m w/ pmh PE, ? hx of afib presents w/ approx 8 hr hx of gradual onset/ progressive SOB. Worsening dyspnea t/o the day today a/w diaphoresis. No palpitations, syncope or chest pain. Recently treated for bronchitis by pcp with rocephin and Levaquin. Denies orthopnea, f/c, abd pain, n/v. Complaints Chief Complaint:: PT C/O SUDDEN ONSET OF SHORTNESS OF BREATH THAT STARTED THIS MORNING. Self Treatment fo Chief Complaint: PT DID HAVE DIARRHEA AND SHORTNESS OF BREATH FOR 1 WEEK. SAW PCP ON SUNDAY AND WAS GIVEN A SHOT OF ROCEPHIN AND SENT HOME ON LEVAQUIN AND STEROIDS. Source History Provided: Patient Mode of Arrival Mode of Arrival: Ambulatory Timing Onset of Chief Complaint: 03/06/21 PMH PMH Past Medical History: Yes Past Medical History: COPD and Kidney Stones Past Medical History Comment: PULMONARY EMBOLISM Past Surgical History: Yes Surgical History: Appendectomy, Ortho Surgery and Lithotripsy Past Surgical History Comment: PROSTATE SURGERY Family History History of Family Medical Conditions: No Family Medical History: Diabetes Mellitus Social History Does patient currently use any type of tobacco product: No Have you used tobacco products in the last 12 months: No Type of Tobacco Use: None Does any household member use tobacco: No Alcohol Use: None Do you use any recreational Drugs:: No Lives With: Family Lives Where: Home Infectious screening In the last 2 months have you had wt loss of >10#?: NO Have you had fever, night sweats or hemotysis?: No Have you traveled outside the country in the last 6 months?: No Isolation: Standard ROS Review of Systems Constitutional: No Symptoms Reported Eyes: No Symptoms Reported ENTM: No Symptoms Reported Respiratoy: Short of Breath; negative Productive Cough, Non-Productive Cough and Dry Cough Cardiovascular: No Symptoms Reported; negative Chest Pain, Palpitations and Syncope Gastrointestinal/Abdominal: No Symptoms Reported Genitourinary: No Symptoms Reported Neurological: No Symptoms Reported Musculoskeletal: No Symptoms Reported Integumentary: No Symptoms Reported Hematologic/Lymphatic: No Symptoms Reported Endocrine: No Symptoms Reported Psychiatric: No Symptoms Reported All Other Systems: Reviewed and Negative PE Vital Signs Vitals: Temperature 36.7 C Pulse Rate 99 Respiratory Rate 19 Blood Pressure [Left Arm] 121/69 Blood Pressure 140/77 O2 Sat by Pulse Oximetry 96 General Limitations: No Limitations General Appearance: Alert, In No Apparent Distress and Other (mild respiratory distress) Head Head Exam: Normal Inspection Eyes Eye exam: Normal Appearance ENT ENT Exam: Normal Exam Neck Neck Exam: Normal Inspection Chest Chest Inspection: Normal Inspection Respiratory Respiratory Exam: Prolonged Expiratory Phase and Respiratory Distress (mild RD ) Respiratory Exam: Bilateral: Clear to Auscultation Cardiovascular Cardiovascular Exam: Tachycardia and Irregular Rhythm; negative Systolic Murmur Abdominal Exam Abdominal Exam: Normal Inspection, Normal Bowel Sounds and Soft Extremities Extremities Exam: Normal Inspection Back Back Exam: Normal Inspection Neurologic Neurological Exam: Alert and Oriented X3 Psychiatric Psychiatric Exam: Normal Affect and Normal Mood Skin Skin Exam: Warm, Dry, Intact and Normal Color MDM Additional Information Obtained Additional Information Obtained From: Family Differential Diagnosis Differential Diagnosis: CHF, COPD, Dysrhythmia, Mycardial Infarction, Pneumothorax, Pulmonary embolism and Respiratory Failure COURSE Treatment Treatment: 1720: Upon my evaluation, this patient had a high probability of imminent or life-threatening deterioration due to ___(condition)__, which required my direct attention, intervention, and personal management. I have personally provided __31_ minutes of critical care time exclusive of time spent on separately billable procedures. Time includes review of laboratory data, radiology results, discussion with consultants, and monitoring for potential decompensation. Interventions were performed as documented above. 76 yo m w/ pmh of PE on eliqui presents w/ dysnea. Found to be in new onset afib w/ rvr. BP was stable. Given diltiazem IVP followed by drip. EKG w/ some AL st segment depression which is likely rate related. TNi negative. Rate controlled on diltiazem drip. Will admit to hospital. Discussed all details of case with dr mcfadden whom agrees to admit. Education/Counseling Education/Counseling: Patient and Family Educated On: Treatment, Diagnosis, Prognosis and Needs for Follow Up ROR Labs Reviewed Laboratory Results Reviewed?: Yes Result Diagrams: 03/06/21 15:25 03/06/21 15:25 Laboratory: WBC 8.2 X10^3/uL (3.6-10.0) 03/06/21 15:25 RBC 5.10 X10^6/uL (4.7-6.0) 03/06/21 15:25 Hgb 15.7 g/dL (13.5-18.0) 03/06/21 15:25 Hct 45.0 % (42.0-54.0) 03/06/21 15:25 MCV 88.3 fL (80.0-100.0) 03/06/21 15:25 MCH 30.8 pg (27.0-34.0) 03/06/21 15:25 MCHC 34.8 g/dL (33.0-35.0) 03/06/21 15:25 RDW 14.1 % (11.6-16.5) 03/06/21 15:25 Plt Count 174 X10^3/uL (150.0-450.0) 03/06/21 15:25 MPV 7.1 fL (7.4-11.0) L 03/06/21 15:25 Neut % (Auto) 84.6 % (42.0-75.0) H 03/06/21 15:25 Lymph % (Auto) 10.8 % (21.0-51.0) L 03/06/21 15:25 [place] % (Auto) 4.4 % (0.0-13.0) 03/06/21 15:25 Eos % (Auto) 0.0 % (0.9-2.9) L 03/06/21 15:25 Baso % (Auto) 0.2 % (0.2-1.0) 03/06/21 15:25 Neut # (Auto) 7.0 x10^3/uL (2.2-4.8) H 03/06/21 15:25 Lymph # (Auto) 0.9 X10^3/uL (1.3-2.9) L 03/06/21 15:25 [place] # (Auto) 0.4 x10^3/uL (0.3-0.8) 03/06/21 15:25 Eos # (Auto) 0.0 x10^3/uL (0.0-0.2) 03/06/21 15:25 Baso # (Auto) 0.0 X10^3/uL (0.0-0.1) 03/06/21 15:25 Absolute Nucleated RBC 0.1 /100WBC 03/06/21 15:25 Sodium 138 mmol/L (136-145) 03/06/21 15:25 Corrected Sodium 140 mmol/L (136-145) 03/06/21 15:25 Potassium 4.9 mmol/L (3.5-5.1) 03/06/21 15:25 Chloride 101 mmol/L (98-107) 03/06/21 15:25 Carbon Dioxide 26.2 mmol/L (21-32) 03/06/21 15:25 BUN 16 mg/dL (7-18) 03/06/21 15:25 Creatinine 1.30 mg/dL (0.70-1.30) 03/06/21 15:25 Est GFR (MDRD) Af Amer > 60 (>60) 03/06/21 15:25 Est GFR (MDRD) Non-Af 57 (>60) L 03/06/21 15:25 Glucose 164 mg/dL (65-99) H 03/06/21 15:25 Calcium 9.4 mg/dL (8.5-10.1) 03/06/21 15:25 Corrected Calcium 10.0 mg/dL (8.5-10.1) 03/06/21 15:25 Phosphorus 2.8 mg/dL (2.6-4.7) 03/06/21 15:25 Magnesium 1.9 mg/dL (1.7-2.9) 03/06/21 15:25 Total Bilirubin 0.40 mg/dL (0.2-1.0) 03/06/21 15:25 AST 37 Units/L (15-37) 03/06/21 15:25 ALT 67 Units/L (12-78) 03/06/21 15:25 Alkaline Phosphatase 95 Units/L (46-116) 03/06/21 15:25 Troponin I < 0.02 ng/mL (0-1.5) 03/06/21 15:25 Total Protein 7.4 g/dL (6.4-8.2) 03/06/21 15:25 Albumin 3.3 g/dL (3.4-5.0) L 03/06/21 15:25 Globulin 4.1 g/dL (2.5-4.5) 03/06/21 15:25 Albumin/Globulin Ratio 0.8 Ratio (1.1-2.1) L 03/06/21 15:25 SARS CoV-2 RNA Rapid DAVI Positive (NEGATIVE) A 03/06/21 15:48 XRAY XRAY Interpreted by: Radiologist X-ray Results: CHEST, 1 VIEW HISTORY: SOB Study: AP view of the chest. Comparison:None Findings: The cardiomediastinal silhouette is normal. No focal consolidations, pleural effusions or pneumothorax. Osseous structures demonstrate no acute abnormality. Bilateral hyperexpansion and interstitial prominence. IMPRESSION: 1. No acute cardiopulmonary process. 2. Findings of COPD. EKG Rate: 124 [place]: RAD Rhythm: Afib Block: None Hypertrophy: None ST: Nonsp Opioid Opioid Risk Tool Age (Santino box if 16-45): No History of Preadolescent Sexual Abuse: No Total: 0 Total Score Risk Category: Low Risk Copyright: Bashir RANKIN predicting aberrant behaviors Diagnosis Discharge Problem: New onset a-fib
[2021-03-06] MEDS ORDERED: CARDIZEM INJ 50 MG VIAL IVP ONE (15:27)
[2021-03-06] MEDS ORDERED: NS 100 ML IV 100 ML IV ONE (15:29)
[2021-03-06] MEDS ORDERED: NS 1000 ML 1,000 ML ONE (15:29)
[2021-03-06] MEDS ORDERED: CARDIZEM INJ 125 MG VIAL ONE (15:30)
[2021-03-06] MEDS ORDERED: CARDIZEM INJ 50 MG VIAL ONE (15:30)
[2021-03-06 15:32] LABS: BASOPHILS % (AUTO) 0.2 % (0.2-1.0); HEMOGLOBIN 15.7 g/dL (13.5-18.0); LYMPHOCYTES # (AUTO) 0.9 X10^3/uL (1.3-2.9); LYMPHOCYTES % (AUTO) 10.8 % (21.0-51.0); MEAN CORPUSCULAR HEMOGLOBIN 30.8 pg (27.0-34.0); MEAN CORPUSCULAR HGB CONC 34.8 g/dL (33.0-35.0); MEAN CORPUSCULAR VOLUME 88.3 fL (80.0-100.0); MEAN PLATELET VOLUME 7.1 fL (7.4-11.0); MONOCYTES # (AUTO) 0.4 x10^3/uL (0.3-0.8); MONOCYTES % (AUTO) 4.4 % (0.0-13.0); NEUTROPHILS % (AUTO) 84.6 % (42.0-75.0); PLATELET COUNT 174 X10^3/uL (150.0-450.0); RED CELL DISTRIBUTION WIDTH 14.1 % (11.6-16.5); WHITE BLOOD COUNT 8.2 X10^3/uL (3.6-10.0)
[2021-03-06] MEDS ORDERED: NS 1000 ML 1,000 ML IV ONE (15:36)
[2021-03-06] MEDS: CARDIZEM INJ 125 MG VIAL 125 MG in NS 100 ML IV 100 ML IV PRN (15:39)
[2021-03-06 15:48] LABS: ALANINE AMINOTRANSFERASE 67 Units/L (12-78); ALBUMIN 3.3 g/dL (3.4-5.0); ALKALINE PHOSPHATASE 95 Units/L (46-116); ASPARTATE AMINO TRANSFERASE 37 Units/L (15-37); BLOOD UREA NITROGEN 16 mg/dL (7-18); CALCIUM 9.4 mg/dL (8.5-10.1); CARBON DIOXIDE 26.2 mmol/L (21-32); CHLORIDE 101 mmol/L (98-107); COR NA(FOR HYPERGLY) 140 mmol/L (136-145); MAGNESIUM 1.9 mg/dL (1.7-2.9); PHOSPHORUS 2.8 mg/dL (2.6-4.7); SODIUM 138 mmol/L (136-145); TOTAL PROTEIN 7.4 g/dL (6.4-8.2); TROPONIN I < 0.02 ng/mL (0-1.5); eGFR NON BLACK RACES 57 (>60)
--- NOTE | 2021-03-06 16:20 | RAD ---
CHEST, 1 VIEWHISTORY: SOBStudy: AP view of the chest.Comparison:NoneFindings:The cardiomediastinal silhouette is normal. No focal consolidations, pleural effusions or pneumothorax. Osseous structures demonstrate no acute abnormality. Bilateral hyperexpansion and interstitial prominence.IMPRESSION:1. No acute cardiopulmonary process.2. Findings of COPD.Electronically signed by: PABLO LOMAX (Mar 06, 2021 16:18:34)
[2021-03-06] MEDS ORDERED: XANAX PO ONE (17:59)
[2021-03-06] MEDS ORDERED: CARDIZEM TAB 30 MG PLAIN PO SCH (18:00)
[2021-03-06] MEDS ORDERED: PROVENTIL NEB TX 0.083% 2.5MG/ 3ML NEB PRN (18:04)
[2021-03-06] MEDS: XOPENEX 1.25 MG/3 ML NEBULE NEB PRN (18:16)
[2021-03-06] MEDS: CARDIZEM CD 180 MG 24-HR PO SCH (18:50)
[2021-03-06] MEDS ORDERED: CRESTOR TAB 10 MG PO ONE (19:41)
[2021-03-06] MEDS ORDERED: LOPRESSOR TAB 25 MG ONE (19:41)
[2021-03-06] MEDS ORDERED: ELIQUIS ONE (19:41)
[2021-03-06] MEDS ORDERED: MICRO K EXTEN CAP 10 MEQ PO ONE (19:41)
[2021-03-06] MEDS: CRESTOR TAB 10 MG PO SCH (20:02)
[2021-03-06] MEDS: MICRO K EXTEN CAP 10 MEQ PO SCH (20:02)
[2021-03-06] MEDS: ELIQUIS PO SCH (20:03)
[2021-03-06] MEDS: LOPRESSOR TAB 25 MG PO SCH (20:03)
[2021-03-07] MEDS: XOPENEX 1.25 MG/3 ML NEBULE NEB PRN ×5 (00:11→16:38)
[2021-03-07] MEDS: CARDIZEM INJ 125 MG VIAL 125 MG in NS 100 ML IV 100 ML IV PRN (02:20)
[2021-03-07] MEDS ORDERED: DUONEB 0.5 MG/3 MG (3 mL) NEB ONE (07:50)
[2021-03-07] MEDS: ELIQUIS PO SCH ×2 (08:37→21:00)
[2021-03-07] MEDS: CARDIZEM CD 180 MG 24-HR PO SCH (08:37)
[2021-03-07] MEDS: FLOMAX PO SCH (08:37)
[2021-03-07] MEDS: LOPRESSOR TAB 25 MG PO SCH ×2 (08:38→21:00)
[2021-03-07] MEDS: MICRO K EXTEN CAP 10 MEQ PO SCH ×2 (08:38→21:00)
[2021-03-07] MEDS: ZOLOFT PO SCH (08:38)
[2021-03-07] MEDS: BROVANA IN SCH ×2 (09:37→20:16)
[2021-03-07] MEDS: PULMICORT NEB TX 0.5 MG NEB SCH ×2 (09:37→20:08)
[2021-03-07] MEDS ORDERED: VITAMIN D (1.25MG) PO SCH (09:45)
[2021-03-07] MEDS ORDERED: NS IV NR (10:00)
[2021-03-07] MEDS ORDERED: VITAMIN A PO SCH (10:00)
[2021-03-07] MEDS ORDERED: LIPITOR TAB 80 MG PO SCH (10:00)
[2021-03-07] MEDS ORDERED: ETESEVIMAB IV NR (10:00)
[2021-03-07] MEDS ORDERED: BAMLANIVIMAB IV NR (10:00)
[2021-03-07] MEDS ORDERED: PHARMACY CONSULT - IVERMECTIN XX SCH (10:00)
[2021-03-07] MEDS: THIAMINE HCL INJ IVP SCH ×2 (10:35→21:00)
[2021-03-07] MEDS: ASCORBIC ACID INJ MULTI-DOSE VIAL 1,500 MG in NS 100 ML IV 100 ML IV SCH ×3 (10:43→21:00)
[2021-03-07] MEDS: IVERMECTIN PO SCH (10:44)
[2021-03-07] MEDS: PEPCID TAB 40 MG PO SCH ×2 (10:45→21:00)
[2021-03-07] MEDS: ZINC SULFATE PO SCH ×2 (10:46→21:00)
[2021-03-07] MEDS: NS 1000 ML 1,000 ML IV SCH (10:46)
[2021-03-07] MEDS: DECADRON TAB PO SCH (10:46)
[2021-03-07] MEDS: CRESTOR TAB 10 MG PO SCH (21:00)
[2021-03-07] MEDS: MELATONIN PO SCH (21:00)
[2021-03-08] MEDS: XOPENEX 1.25 MG/3 ML NEBULE NEB PRN ×4 (00:05→17:09)
[2021-03-08] MEDS: ASCORBIC ACID INJ MULTI-DOSE VIAL 1,500 MG in NS 100 ML IV 100 ML IV SCH ×4 (04:00→20:49)
[2021-03-08 07:00] LABS: BASOPHILS % (AUTO) 0.1 % (0.2-1.0); HEMATOCRIT 41.2 % (42.0-54.0); LYMPHOCYTES # (AUTO) 0.7 X10^3/uL (1.3-2.9); LYMPHOCYTES % (AUTO) 5.1 % (21.0-51.0); MEAN CORPUSCULAR HEMOGLOBIN 30.2 pg (27.0-34.0); MEAN CORPUSCULAR VOLUME 88.6 fL (80.0-100.0); MEAN PLATELET VOLUME 7.2 fL (7.4-11.0); MONOCYTES # (AUTO) 0.5 x10^3/uL (0.3-0.8); MONOCYTES % (AUTO) 3.3 % (0.0-13.0); NEUTROPHILS # (AUTO) 12.9 x10^3/uL (2.2-4.8); NEUTROPHILS % (AUTO) 91.5 % (42.0-75.0); PLATELET COUNT 182 X10^3/uL (150.0-450.0); RED BLOOD COUNT 4.65 X10^6/uL (4.7-6.0); RED CELL DISTRIBUTION WIDTH 14.6 % (11.6-16.5); WHITE BLOOD COUNT 14.2 X10^3/uL (3.6-10.0)
[2021-03-08 07:18] LABS: ALANINE AMINOTRANSFERASE 96 Units/L (12-78); ALBUMIN 2.6 g/dL (3.4-5.0); ALKALINE PHOSPHATASE 79 Units/L (46-116); ASPARTATE AMINO TRANSFERASE 68 Units/L (15-37); BLOOD UREA NITROGEN 17 mg/dL (7-18); CALCIUM 8.7 mg/dL (8.5-10.1); CARBON DIOXIDE 23.9 mmol/L (21-32); CHLORIDE 104 mmol/L (98-107); COR CA(FOR HYPOALB) 9.8 mg/dL (8.5-10.1); COR NA(FOR HYPERGLY) 142 mmol/L (136-145); SODIUM 140 mmol/L (136-145); TOTAL PROTEIN 6.7 g/dL (6.4-8.2); eGFR NON BLACK RACES > 60 (>60)
[2021-03-08 07:19] LABS: PLATELET MORPHOLOGY COMMENT NORMAL (NORMAL)
[2021-03-08] MEDS: BROVANA IN SCH ×2 (09:17→20:53)
[2021-03-08] MEDS: PULMICORT NEB TX 0.5 MG NEB SCH ×2 (09:23→21:02)
[2021-03-08] MEDS: ELIQUIS PO SCH ×2 (09:29→20:50)
[2021-03-08] MEDS: ZINC SULFATE PO SCH ×2 (09:29→20:52)
[2021-03-08] MEDS: IVERMECTIN PO SCH (09:30)
[2021-03-08] MEDS: DECADRON TAB PO SCH (09:31)
[2021-03-08] MEDS: PEPCID TAB 40 MG PO SCH ×2 (09:31→20:52)
[2021-03-08] MEDS: ZOLOFT PO SCH (09:32)
[2021-03-08] MEDS: LOPRESSOR TAB 25 MG PO SCH ×2 (09:32→20:51)
[2021-03-08] MEDS: FLOMAX PO SCH (09:32)
[2021-03-08] MEDS: CARDIZEM CD 180 MG 24-HR PO SCH (09:32)
[2021-03-08] MEDS: THIAMINE HCL INJ IVP SCH ×2 (09:33→20:52)
[2021-03-08] MEDS: MICRO K EXTEN CAP 10 MEQ PO SCH ×2 (09:33→20:52)
[2021-03-08] MEDS: NS 1000 ML 1,000 ML IV SCH (11:59)
[2021-03-08] MEDS: CRESTOR TAB 10 MG PO SCH (20:49)
[2021-03-08] MEDS: MELATONIN PO SCH (20:51)
[2021-03-09] MEDS: ASCORBIC ACID INJ MULTI-DOSE VIAL 1,500 MG in NS 100 ML IV 100 ML IV SCH ×2 (04:00→08:00)
[2021-03-09 05:15] LABS: BASOPHILS % (AUTO) 0 % (0.2-1.0); HEMATOCRIT 39.6 % (42.0-54.0); HEMOGLOBIN 13.2 g/dL (13.5-18.0); LYMPHOCYTES # (AUTO) 0.8 X10^3/uL (1.3-2.9); LYMPHOCYTES % (AUTO) 7.3 % (21.0-51.0); MEAN CORPUSCULAR HEMOGLOBIN 29.7 pg (27.0-34.0); MEAN CORPUSCULAR HGB CONC 33.4 g/dL (33.0-35.0); MEAN CORPUSCULAR VOLUME 88.7 fL (80.0-100.0); MEAN PLATELET VOLUME 7.5 fL (7.4-11.0); MONOCYTES # (AUTO) 0.4 x10^3/uL (0.3-0.8); MONOCYTES % (AUTO) 3.6 % (0.0-13.0); NEUTROPHILS # (AUTO) 10.1 x10^3/uL (2.2-4.8); NEUTROPHILS % (AUTO) 89.1 % (42.0-75.0); PLATELET COUNT 200 X10^3/uL (150.0-450.0); RED BLOOD COUNT 4.46 X10^6/uL (4.7-6.0); RED CELL DISTRIBUTION WIDTH 14.2 % (11.6-16.5); WHITE BLOOD COUNT 11.3 X10^3/uL (3.6-10.0)
[2021-03-09] MEDS: XOPENEX 1.25 MG/3 ML NEBULE NEB PRN ×2 (05:47→09:14)
[2021-03-09 06:04] LABS: ALANINE AMINOTRANSFERASE 116 Units/L (12-78); BLOOD UREA NITROGEN 21 mg/dL (7-18); CARBON DIOXIDE 23.9 mmol/L (21-32); CHLORIDE 107 mmol/L (98-107); SODIUM 140 mmol/L (136-145)
[2021-03-09 06:14] LABS: ALBUMIN 2.3 g/dL (3.4-5.0); ALKALINE PHOSPHATASE 77 Units/L (46-116); ASPARTATE AMINO TRANSFERASE 74 Units/L (15-37); CALCIUM 8.6 mg/dL (8.5-10.1); COR NA(FOR HYPERGLY) 142 mmol/L (136-145); CREATININE 0.92 mg/dL (0.70-1.30); TOTAL PROTEIN 6.1 g/dL (6.4-8.2); eGFR NON BLACK RACES > 60 (>60)
[2021-03-09] MEDS: ZOLOFT PO SCH (08:30)
[2021-03-09] MEDS: FLOMAX PO SCH (08:30)
[2021-03-09] MEDS: ELIQUIS PO SCH (08:30)
[2021-03-09] MEDS: DECADRON TAB PO SCH (08:30)
[2021-03-09] MEDS: PEPCID TAB 40 MG PO SCH (08:30)
[2021-03-09] MEDS: MICRO K EXTEN CAP 10 MEQ PO SCH (08:30)
[2021-03-09] MEDS: LOPRESSOR TAB 25 MG PO SCH (08:30)
[2021-03-09] MEDS: ZINC SULFATE PO SCH (08:30)
[2021-03-09] MEDS: IVERMECTIN PO SCH (08:30)
[2021-03-09] MEDS: CARDIZEM CD 180 MG 24-HR PO SCH (08:30)
[2021-03-09] MEDS: THIAMINE HCL INJ IVP SCH (08:30)
[2021-03-09] MEDS ORDERED: VITAMIN D3 125 mcg (5,000 UNITS) PO SCH (09:00)
[2021-03-09] MEDS ORDERED: VITAMIN A PO SCH (09:00)
[2021-03-09 09:04] VITALS: BP 121/73
[2021-03-09] MEDS: BROVANA IN SCH (09:08)
[2021-03-09] MEDS: PULMICORT NEB TX 0.5 MG NEB SCH (09:14)
== END 2021-03-09 11:24 | disposition home or self-care (01) ==
LOC: ER 15:06 → ICU 15:06
PROVIDERS: ADMIT Obstetrics & Gynecology Obstetrics; ATTEND Obstetrics & Gynecology Obstetrics
DX: I48.91 Unspecified atrial fibrillation; U07.1 COVID-19; Z79.01 Long term (current) use of anticoagulants; R06.02 Shortness of breath; R94.31 Abnormal electrocardiogram [ECG] [EKG]; R26.81 Unsteadiness on feet

== ENCOUNTER 2024-03-07 02:04 | Observation (INO) ==
[2024-03-07 02:27] LABS: ABG ALLEN TEST POS; ABG BASE EXCESS 1.6 mmol/L (-2.0-2.0); ABG HCO3 24.2 mmol/L (22-26)
--- NOTE | 2024-03-07 02:37 | DR.SOBA ---
HPI Time Seen Time Seen by Provider: 03/07/24 02:34 Primary Care Physician Primary Care Physician: DONG UNGER Complaints Chief Complaint Doctors Comments: Patient has a h/o COPD and Lung cancer. Lung Ca was diagnosed approx. 1 yr ago in [facility] [place]. 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 [phone]). Patient recieved Radiation therapy and went into remission. 01/05 Patient had a Pet scan that revealed multile nodules in his Rt lung. Patient will be getting a Repeat Pet scan 03/28/24. [address] Boswell started Patient on doxycycline 3 days a week.One week ago his Pcp gave him an antibx shot at the clinic and an antibiotic to take at home. Last night he took the trash to the curb and became sob.Daughter states that he was more sob than nml and brought him to the ED. Patient has a chronic cough and the sputum is always light yellow. Patient denies: fever,weakness,n,v,chest pain,back pain,headache. Patient took 3 xopenex nebs yesterday.Patient wears 02 prn but has required it yesterday. Chief Complaint:: PT AMBULATORY IN ED WITH C/O SHORTNESS OF BREATH SINCE AROUND 9PM LAST NIGHT. DAUGHTER STATES HE TOOK THE TRASH CAN TO THE ROAD AND BECAME VERY WINDED. COVID-19 Coronavirus risk:travel/contact w/high risk person: No Has patient experienced Coronavirus symptoms: Yes Coronavirus symptoms experienced: Shortness of Breath Source History Provided: Patient and Family Member Mode of Arrival Mode of Arrival: Ambulatory Timing Onset of Chief Complaint: 03/06/24 PMH PMH Past Medical History: Yes Past Medical History: Asthma, COPD, Coronary Artery Disease, Dyslipidemia, GERD, Hypertension and Kidney Stones Past Medical History Comment: LUNG CANCER A-FIB BPH PULMONARY EMBOLUS Past Surgical History: Yes Surgical History: Appendectomy, Ortho Surgery and Lithotripsy Past Surgical History Comment: BILATERAL CATARACT RIGHT KNEE PROSTATE Family History History of Family Medical Conditions: Yes Family Medical History: Diabetes Mellitus, Coronary Artery Disease and Hypertension Social History Does patient currently use any type of tobacco product: No Have you used tobacco products in the last 12 months: No Type of Tobacco Use: None Does any household member use tobacco: No Alcohol Use: None Do you use any recreational Drugs:: No Lives With: Family Lives Where: Home Travel Risk Coronavirus risk:travel/contact w/high risk person: No Has patient experienced Coronavirus symptoms: Yes Coronavirus symptoms experienced: Shortness of Breath Infectious screening In the last 2 months have you had wt loss of >10#?: NO Have you had fever, night sweats or hemotysis?: No Have you traveled outside the country in the last 6 months?: No Isolation: Droplet ROS Review of Systems Constitutional: No Symptoms Reported Eyes: No Symptoms Reported ENTM: No Symptoms Reported Respiratoy: Productive Cough and Short of Breath Cardiovascular: No Symptoms Reported Gastrointestinal/Abdominal: No Symptoms Reported Genitourinary: No Symptoms Reported Neurological: No Symptoms Reported Musculoskeletal: No Symptoms Reported Integumentary: No Symptoms Reported Hematologic/Lymphatic: No Symptoms Reported Endocrine: No Symptoms Reported Psychiatric: No Symptoms Reported All Other Systems: Reviewed and Negative PE Vital Signs Vitals: Vital Signs Temperature 99.1 F Pulse Rate 97 Pulse Rate 94 Pulse Rate 87 Pulse Rate 90 Pulse Rate 90 Pulse Rate 93 Pulse Rate 87 Pulse Rate 97 Pulse Rate 96 Pulse Rate 96 Pulse Rate 105 Pulse Rate 105 Pulse Rate 107 Pulse Rate 107 Respiratory Rate 97 Respiratory Rate 22 Respiratory Rate 24 Blood Pressure 129/86 Blood Pressure 145/65 Blood Pressure 145/65 Blood Pressure 145/65 Blood Pressure 134/65 Blood Pressure 134/65 Blood Pressure 131/60 Blood Pressure 131/60 Blood Pressure 131/60 Blood Pressure 131/60 Blood Pressure 131/60 Blood Pressure 131/60 Blood Pressure 132/78 Blood Pressure 132/78 O2 Sat by Pulse Oximetry 93 O2 Sat by Pulse Oximetry 95 O2 Sat by Pulse Oximetry 93 O2 Sat by Pulse Oximetry 95 O2 Sat by Pulse Oximetry 99 O2 Sat by Pulse Oximetry 94 O2 Sat by Pulse Oximetry 93 O2 Sat by Pulse Oximetry 95 O2 Sat by Pulse Oximetry 95 O2 Sat by Pulse Oximetry 95 O2 Sat by Pulse Oximetry 93 O2 Sat by Pulse Oximetry 93 O2 Sat by Pulse Oximetry 94 O2 Sat by Pulse Oximetry 94 General Limitations: No Limitations General Appearance: Alert and In No Apparent Distress Head Head Exam: Normal Inspection Eyes Eye exam: Normal Appearance ENT ENT Exam: Normal Exam Neck Neck Exam: Normal Inspection Chest Chest Inspection: Normal Inspection Respiratory Respiratory Exam: Normal Lung Sounds Bilat Respiratory Exam: Bilateral: Decreased Breath Sounds Cardiovascular Cardiovascular Exam: Regular Rate and Normal Rhythm Abdominal Exam Abdominal Exam: Normal Inspection, Normal Bowel Sounds and Soft Extremities Extremities Exam: Normal Inspection Back Back Exam: Normal Inspection Neurologic Neurological Exam: Alert and Oriented X3 Psychiatric Psychiatric Exam: Normal Affect and Normal Mood Skin Skin Exam: Warm, Dry, Intact and Normal Color MDM Differential Diagnosis Differential Diagnosis: COPD and Pneumonia Differential Diagnosis Comment:: Electrolyte Disorder COURSE Treatment Treatment: Patient was brought to a monitored room and IV access was initiated. Patient was given a Xopenex neb because of the persistent coughing. Labs and tests were ordered: WBC 16.6, lactic acid 2.5, CRP 14.6, 18.1, COVID-19 panel negative, CMP stable, ABG: PH 7.5/PC02 31.0/P02 61.0/HC03 24.2/02 SAT 93%/FI02 28, patient's chest x-ray with right possibly bilateral opacities. A blood culture was drawn and patient received Zosyn 3.375 mg IV in the ED. 03:[address] Ellis who has accepted the patient to [facility] for further evaluation. [facility] Labs Reviewed Laboratory Results Reviewed?: Yes 03/07/24 02:40 03/07/24 02:40 Laboratory: WBC 16.6 X10^3/uL (3.6-10.0) H 03/07/24 02:40 RBC 4.71 X10^6/uL (4.7-6.0) 03/07/24 02:40 Hgb 11.7 g/dL (13.5-18.0) L 03/07/24 02:40 Hct 36.0 % (42.0-54.0) L 03/07/24 02:40 MCV 76.4 fL (80.0-100.0) L 03/07/24 02:40 MCH 24.9 pg (27.0-34.0) L 03/07/24 02:40 MCHC 32.6 g/dL (33.0-35.0) L 03/07/24 02:40 RDW 17.0 % (11.6-16.5) H 03/07/24 02:40 Plt Count 228 X10^3/uL (150.0-450.0) 03/07/24 02:40 MPV 7.2 fL (7.4-11.0) L 03/07/24 02:40 Neut % (Auto) 85.8 % (42.0-75.0) H 03/07/24 02:40 Lymph % (Auto) 6.5 % (21.0-51.0) L 03/07/24 02:40 Bland % (Auto) 6.9 % (0.0-13.0) 03/07/24 02:40 Eos % (Auto) 0.5 % (0.9-2.9) L 03/07/24 02:40 Baso % (Auto) 0.3 % (0.2-1.0) 03/07/24 02:40 Neut # (Auto) 14.3 x10^3/uL (2.2-4.8) H 03/07/24 02:40 Lymph # (Auto) 1.1 X10^3/uL (1.3-2.9) L 03/07/24 02:40 Bland # (Auto) 1.2 x10^3/uL (0.3-0.8) H 03/07/24 02:40 Eos # (Auto) 0.1 x10^3/uL (0.0-0.2) 03/07/24 02:40 Baso # (Auto) 0.1 X10^3/uL (0.0-0.1) 03/07/24 02:40 Absolute Nucleated RBC 0.0 /100WBC 03/07/24 02:40 Sample Site Rr 03/07/24 02:22 ABG pH 7.500 (7.35-7.45) H 03/07/24 02:22 ABG pCO2 31.0 mmHg (35.0-45.0) L 03/07/24 02:22 ABG pO2 61.0 mmHg (80.0-100.0) L 03/07/24 02:22 ABG HCO3 24.2 mmol/L (22-26) 03/07/24 02:22 ABG O2 Saturation 93.0 % (90-100) 03/07/24 02:22 ABG Base Excess 1.6 mmol/L (-2.0-2.0) 03/07/24 02:22 Alexey Test Pos 03/07/24 02:22 A-a Gradient 100.0 mmHg 03/07/24 02:22 FiO2 28.0 03/07/24 02:22 Blood Gas Comments Johnie well ae 03/07/24 02:22 Sodium 138 mmol/L (136-145) 03/07/24 02:40 Corrected Sodium 139 mmol/L (136-145) 03/07/24 02:40 Potassium 4.1 mmol/L (3.5-5.1) 03/07/24 02:40 Chloride 103 mmol/L (98-107) 03/07/24 02:40 Carbon Dioxide 27.0 mmol/L (21-32) 03/07/24 02:40 BUN 14 mg/dL (7-18) 03/07/24 02:40 Creatinine 1.19 mg/dL (0.70-1.30) 03/07/24 02:40 Est GFR (MDRD) Af Amer > 60 (>60) 03/07/24 02:40 Est GFR (MDRD) Non-Af > 60 (>60) 03/07/24 02:40 Glucose 156 mg/dL (65-99) H 03/07/24 02:40 Lactic Acid 2.5 mmol/L (0.4-2.0) H 03/07/24 02:40 Calcium 8.9 mg/dL (8.5-10.1) 03/07/24 02:40 Corrected Calcium 9.8 mg/dL (8.5-10.1) 03/07/24 02:40 Total Bilirubin 0.40 mg/dL (0.2-1.0) 03/07/24 02:40 AST 19 Units/L (15-37) 03/07/24 02:40 ALT 45 Units/L (12-78) 03/07/24 02:40 Alkaline Phosphatase 88 Units/L (46-116) 03/07/24 02:40 C-Reactive Protein 14.60 mg/L (0-3.0) H 03/07/24 02:40 B-Natriuretic Peptide 18.1 pg/mL (0-79) 03/07/24 02:40 Total Protein 6.5 g/dL (6.4-8.2) 03/07/24 02:40 Albumin 2.9 g/dL (3.4-5.0) L 03/07/24 02:40 Globulin 3.6 g/dL (2.5-4.5) 03/07/24 02:40 Albumin/Globulin Ratio 0.8 Ratio (1.1-2.1) L 03/07/24 02:40 SARS-CoV-2 (PCR) Negative (NEGATIVE) 03/07/24 02:10 Influenza Type A (PCR) Negative (NEGATIVE) 03/07/24 02:10 Influenza Type B (PCR) Negative (NEGATIVE) 03/07/24 02:10 RSV (PCR) Negative (NEGATIVE) 03/07/24 02:10 Opioid Opioid Risk Tool Age (Santino box if 16-45): No History of Preadolescent Sexual Abuse: No Total: 0 Total Score Risk Category: Low Risk Copyright: [facility] predicting aberrant behaviors Discharge Plan Diagnosis Discharge Problem: Pneumonia, Acute exacerbation of chronic obstructive pulmonary disease, Hypoxemia Discharge Plan Patient Disposition: ADMITTED INPATIENT Condition: Stable Prescriptions: No Action potassium chloride 10 mEq capsule, extended release 10 meq PO DAILY Rx Instructions: TAKE ON SUNDAY AND SUNDAY prednisone 10 mg tablet 10 mg PO DAILY tamsulosin 0.4 mg capsule 0.4 mg PO DAILY sertraline 25 mg tablet 25 mg PO DAILY omeprazole 20 mg capsule,delayed release(DR/EC) 20 mg PO BID levalbuterol HCl 1.25 mg/3 mL solution for nebulization 3 ml inhalation TID ipratropium bromide 0.02 % solution 0.5 mg inhalation TID Patient Comments: [NO ORIGINAL SIG] metoprolol tartrate 25 mg tablet 25 mg PO BID doxycycline hyclate 100 mg capsule 100 mg PO BID Rx Instructions: TAKE ON SUNDAY, SUNDAY AND SUNDAY sucralfate 1 gram tablet 1 g PO TID fluticasone propion-salmeterol [Wixela Inhub] 500-50 mcg/dose Blister With Device 1 inh INHALATION BID Centrum Complete 18-400 mg-mcg Tablet 1 tab PO QDAY dronedarone 400 mg Tablet 400 mg PO BID Rx Instructions: must administer with a meal/food Spiriva Respimat 2.5 mcg/actuation Mist 2 puff INHALATION QDAY Eliquis 5 mg Tablet 5 mg PO BID cyanocobalamin (vitamin B-12) 1,000 mcg Capsule 1,000 mcg PO QDAY Health Concerns: Post Hospitalization: new medications and changes needed to prevent readmission or further decline. Pt educated and given instructions on all concerns. Plan of Treatment: Continue with present treatment and follow up plan. Pt is to keep follow up appointment as instructed and take medications as ordered. Orders to Discharge Patient Discharge Orders: Transfer (Routine); Ordered 03/07/24 Ordered By: Dunia Lugo Follow ups/Referrals Follow ups/Referrals: HARMONY UNGER [Primary Care Provider] - 3 days Instructions Stand Alone Forms: Post Hospital Follow Up Care
--- NOTE | 2024-03-07 02:38 | EKG ---
Test Reason : chest pain Blood Pressure : */* mmHG Vent. Rate : 97 BPM Atrial Rate : 97 BPM P-R Int : 160 ms QRS Dur : 84 ms QT Int : 334 ms P-R-T Axes : 67 58 58 degrees QTc Int : 424 ms Normal sinus rhythm Low voltage QRS Nonspecific ST abnormality Abnormal ECG No previous ECGs available Confirmed by Kristofer Salgado MD ([id number]) on 03/07/2024 7:56:49 AM Referred By: Confirmed By: Kristofer Salgado MD
[2024-03-07] MEDS: XOPENEX 1.25 MG/3 ML NEBULE NEB ONE (03:02)
[2024-03-07 03:05] LABS: BASOPHILS # (AUTO) 0.1 X10^3/uL (0.0-0.1); BASOPHILS % (AUTO) 0.3 % (0.2-1.0); EOSINOPHILS # (AUTO) 0.1 x10^3/uL (0.0-0.2); EOSINOPHILS % (AUTO) 0.5 % (0.9-2.9); HEMOGLOBIN 11.7 g/dL (13.5-18.0); LYMPHOCYTES # (AUTO) 1.1 X10^3/uL (1.3-2.9); LYMPHOCYTES % (AUTO) 6.5 % (21.0-51.0); MEAN CORPUSCULAR HEMOGLOBIN 24.9 pg (27.0-34.0); MEAN CORPUSCULAR HGB CONC 32.6 g/dL (33.0-35.0); MEAN CORPUSCULAR VOLUME 76.4 fL (80.0-100.0); MEAN PLATELET VOLUME 7.2 fL (7.4-11.0); MONOCYTES # (AUTO) 1.2 x10^3/uL (0.3-0.8); MONOCYTES % (AUTO) 6.9 % (0.0-13.0); NEUTROPHILS # (AUTO) 14.3 x10^3/uL (2.2-4.8); NEUTROPHILS % (AUTO) 85.8 % (42.0-75.0); PLATELET COUNT 228 X10^3/uL (150.0-450.0); RED BLOOD COUNT 4.71 X10^6/uL (4.7-6.0); WHITE BLOOD COUNT 16.6 X10^3/uL (3.6-10.0)
[2024-03-07 03:21] LABS: ALANINE AMINOTRANSFERASE 45 Units/L (12-78); ALBUMIN 2.9 g/dL (3.4-5.0); ALKALINE PHOSPHATASE 88 Units/L (46-116); ASPARTATE AMINO TRANSFERASE 19 Units/L (15-37); BLOOD UREA NITROGEN 14 mg/dL (7-18); CALCIUM 8.9 mg/dL (8.5-10.1); CHLORIDE 103 mmol/L (98-107); COR CA(FOR HYPOALB) 9.8 mg/dL (8.5-10.1); COR NA(FOR HYPERGLY) 139 mmol/L (136-145); CREATININE 1.19 mg/dL (0.70-1.30); GLUCOSE 156 mg/dL (65-99); POTASSIUM 4.1 mmol/L (3.5-5.1); SODIUM 138 mmol/L (136-145); TOTAL PROTEIN 6.5 g/dL (6.4-8.2); eGFR NON BLACK RACES > 60 (>60)
[2024-03-07] MEDS ORDERED: NS 250 ML IV 25 ML IV PRN (03:34)
[2024-03-07] MEDS: ZOSYN VIAL 3.375 GRAMS 3.375 G in NS 100 ML IV 100 ML IV SCH ×2 (03:53→13:35)
[2024-03-07] MEDS: SOLU-Medrol 125 MG VIAL IVP ONE (04:23)
[2024-03-07 04:55] LABS: BASOPHILS # (AUTO) 0.1 X10^3/uL (0.0-0.1); EOSINOPHILS # (AUTO) 0.1 x10^3/uL (0.0-0.2); LYMPHOCYTES # (AUTO) 1.4 X10^3/uL (1.3-2.9); MEAN PLATELET VOLUME 7.3 fL (7.4-11.0)
[2024-03-07 05:01] LABS: BASOPHILS % (AUTO) 0.4 % (0.2-1.0); EOSINOPHILS % (AUTO) 0.3 % (0.9-2.9); MEAN CORPUSCULAR HEMOGLOBIN 24.8 pg (27.0-34.0); MEAN CORPUSCULAR HGB CONC 32.5 g/dL (33.0-35.0); MEAN CORPUSCULAR VOLUME 76.3 fL (80.0-100.0); MONOCYTES # (AUTO) 1.5 x10^3/uL (0.3-0.8); MONOCYTES % (AUTO) 8.3 % (0.0-13.0); NEUTROPHILS # (AUTO) 14.6 x10^3/uL (2.2-4.8); PLATELET COUNT 221 X10^3/uL (150.0-450.0); RED BLOOD COUNT 4.85 X10^6/uL (4.7-6.0); WHITE BLOOD COUNT 17.6 X10^3/uL (3.6-10.0)
[2024-03-07 05:07] LABS: ALANINE AMINOTRANSFERASE 45 Units/L (12-78); ALBUMIN 3.1 g/dL (3.4-5.0); ALKALINE PHOSPHATASE 87 Units/L (46-116); ASPARTATE AMINO TRANSFERASE 22 Units/L (15-37); BLOOD UREA NITROGEN 14 mg/dL (7-18); CALCIUM 9.2 mg/dL (8.5-10.1); CARBON DIOXIDE 29.5 mmol/L (21-32); CHLORIDE 103 mmol/L (98-107); COR CA(FOR HYPOALB) 9.9 mg/dL (8.5-10.1); COR NA(FOR HYPERGLY) 140 mmol/L (136-145); CREATININE 1.18 mg/dL (0.70-1.30); GLUCOSE 133 mg/dL (65-99); POTASSIUM 3.9 mmol/L (3.5-5.1); SODIUM 139 mmol/L (136-145); TOTAL PROTEIN 6.7 g/dL (6.4-8.2); eGFR NON BLACK RACES > 60 (>60)
[2024-03-07 05:12] VITALS: BMI 26.9
[2024-03-07] MEDS: CARAFATE PO SCH (05:21)
--- NOTE | 2024-03-07 05:43 | RAD ---
PROCEDURE: Chest X-ray 1 View.HISTORY: Dyspnea.TECHNIQUE: AP portable done at 3:01 a.m..COMPARISON: 04/15/2023.TECHNICAL QUALITY: Satisfactory.FINDINGS:Normal size heart.Mediastinum and hilar regions show no masses or lymphadenopathy.Normal central vascularity.No pulmonary consolidation, masses, pleural fluid, or pneumothorax. Discoid atelectasis or linear scar at the left base that is appeared since previous study. Emphysema with hyperlucency and hyperexpansion.No acute bony abnormality.IMPRESSION:1. COPD.2. Interval scar versus atelectasis left base.THIS IS AN ELECTRONICALLY VERIFIED FINAL REPORT03/07/2024 5:39 AM - Electronically signed by Tha Ahmadi MD
[2024-03-07] MEDS: FLOMAX PO SCH (08:25)
[2024-03-07] MEDS: ELIQUIS PO SCH (08:25)
[2024-03-07] MEDS: ZOLOFT PO SCH (08:25)
[2024-03-07] MEDS: MULTAQ PO SCH (08:25)
[2024-03-07] MEDS: PriLOSEC PO SCH (08:25)
[2024-03-07] MEDS: VITAMIN B-12 PO SCH (08:25)
[2024-03-07] MEDS: LOPRESSOR TAB 25 MG PO SCH (08:25)
[2024-03-07] MEDS: TAB-A-VITE PO SCH (08:25)
[2024-03-07] MEDS ORDERED: XOPENEX 1.25 MG/3 ML NEBULE NEB SCH (09:00)
[2024-03-07] MEDS: Atrovent NEB TX 0.02% NEB SCH (09:16)
[2024-03-07] MEDS: PULMICORT NEB TX 0.5 MG NEB SCH (09:16)
[2024-03-07] MEDS: XOPENEX 1.25 MG/3 ML NEBULE NEB SCH (09:16)
[2024-03-07] MEDS: AVELOX IV 400 MG/250 ML BAG 400 MG/250 ML PIGGYBACK IV SCH (09:46)
[2024-03-07] MEDS: DALIRESP PO SCH (09:46)
[2024-03-07] MEDS ORDERED: SOLU-Medrol 40 MG VIAL IVP SCH (14:00)
[2024-03-07] MEDS: SINGULAIR TAB 10 MG PO SCH (20:38)
[2024-03-08 05:12] LABS: BASOPHILS # (AUTO) 0.1 X10^3/uL (0.0-0.1); BASOPHILS % (AUTO) 0.4 % (0.2-1.0); EOSINOPHILS % (AUTO) 0.2 % (0.9-2.9); HEMATOCRIT 31.9 % (42.0-54.0); HEMOGLOBIN 10.4 g/dL (13.5-18.0); LYMPHOCYTES # (AUTO) 0.8 X10^3/uL (1.3-2.9); LYMPHOCYTES % (AUTO) 5.9 % (21.0-51.0); MEAN CORPUSCULAR HEMOGLOBIN 24.8 pg (27.0-34.0); MEAN CORPUSCULAR HGB CONC 32.7 g/dL (33.0-35.0); MEAN CORPUSCULAR VOLUME 75.9 fL (80.0-100.0); MEAN PLATELET VOLUME 7.7 fL (7.4-11.0); MONOCYTES # (AUTO) 1.1 x10^3/uL (0.3-0.8); MONOCYTES % (AUTO) 8.7 % (0.0-13.0); NEUTROPHILS # (AUTO) 11.2 x10^3/uL (2.2-4.8); NEUTROPHILS % (AUTO) 84.8 % (42.0-75.0); PLATELET COUNT 204 X10^3/uL (150.0-450.0); RED CELL DISTRIBUTION WIDTH 17.1 % (11.6-16.5); WHITE BLOOD COUNT 13.2 X10^3/uL (3.6-10.0)
[2024-03-08 05:30] LABS: ALANINE AMINOTRANSFERASE 40 Units/L (12-78); ALBUMIN 2.5 g/dL (3.4-5.0); ALKALINE PHOSPHATASE 67 Units/L (46-116); ASPARTATE AMINO TRANSFERASE 17 Units/L (15-37); BLOOD UREA NITROGEN 15 mg/dL (7-18); CALCIUM 9.1 mg/dL (8.5-10.1); CARBON DIOXIDE 26.6 mmol/L (21-32); CHLORIDE 105 mmol/L (98-107); COR CA(FOR HYPOALB) 10.3 mg/dL (8.5-10.1); COR NA(FOR HYPERGLY) 142 mmol/L (136-145); CREATININE 0.97 mg/dL (0.70-1.30); GLUCOSE 132 mg/dL (65-99); POTASSIUM 3.6 mmol/L (3.5-5.1); SODIUM 141 mmol/L (136-145); TOTAL PROTEIN 6.1 g/dL (6.4-8.2); eGFR NON BLACK RACES > 60 (>60)
[2024-03-08] MEDS: PREDNISONE TAB 20 MG PO SCH (09:06)
[2024-03-08] MEDS: MAG-OX TAB PO SCH (09:07)
[2024-03-08] MEDS: K-DUR TAB 20 MEQ PO SCH (09:08)
[2024-03-08] MEDS: PROCRIT or EPOGEN VIAL 10,000 UNITS SC ONE (09:10)
[2024-03-08] MEDS: NS 250 ML IV 250 ML IV ONE (09:23)
[2024-03-08] MEDS: CONSULT PHARMACY - POTASSIUM & MAGNESIUM XX SCH (09:28)
[2024-03-09 04:05] VITALS: O2SAT 94
[2024-03-09 05:38] LABS: BASOPHILS % (AUTO) 0.2 % (0.2-1.0); EOSINOPHILS % (AUTO) 0.3 % (0.9-2.9); HEMATOCRIT 30.9 % (42.0-54.0); HEMOGLOBIN 10.1 g/dL (13.5-18.0); LYMPHOCYTES # (AUTO) 0.8 X10^3/uL (1.3-2.9); LYMPHOCYTES % (AUTO) 8.7 % (21.0-51.0); MEAN CORPUSCULAR HEMOGLOBIN 25.1 pg (27.0-34.0); MEAN CORPUSCULAR HGB CONC 32.6 g/dL (33.0-35.0); MEAN PLATELET VOLUME 7.6 fL (7.4-11.0); MONOCYTES # (AUTO) 0.9 x10^3/uL (0.3-0.8); MONOCYTES % (AUTO) 9.8 % (0.0-13.0); NEUTROPHILS # (AUTO) 7.7 x10^3/uL (2.2-4.8); PLATELET COUNT 197 X10^3/uL (150.0-450.0); RED BLOOD COUNT 4.02 X10^6/uL (4.7-6.0); WHITE BLOOD COUNT 9.5 X10^3/uL (3.6-10.0)
[2024-03-09 06:14] LABS: ALANINE AMINOTRANSFERASE 36 Units/L (12-78); ALBUMIN 2.5 g/dL (3.4-5.0); ALKALINE PHOSPHATASE 71 Units/L (46-116); ASPARTATE AMINO TRANSFERASE 16 Units/L (15-37); BLOOD UREA NITROGEN 13 mg/dL (7-18); CALCIUM 8.8 mg/dL (8.5-10.1); CARBON DIOXIDE 27.4 mmol/L (21-32); CHLORIDE 106 mmol/L (98-107); GLUCOSE 110 mg/dL (65-99); POTASSIUM 4.1 mmol/L (3.5-5.1); SODIUM 142 mmol/L (136-145); TOTAL PROTEIN 6.1 g/dL (6.4-8.2); eGFR NON BLACK RACES > 60 (>60)
[2024-03-09 08:09] VITALS: BP 161/74; PULSE 79; RESP 22; TEMP 98
[2024-03-10] MEDS ORDERED: MICRO K EXTEN CAP 10 MEQ PO SCH (09:00)
[2024-03-12] MEDS ORDERED: MICRO K EXTEN CAP 10 MEQ PO SCH (09:00)
== END 2024-03-09 09:10 | disposition home or self-care (01) ==
LOC: ER 02:06 → ICU 02:06
PROVIDERS: ADMIT Obstetrics & Gynecology Obstetrics; ATTEND Obstetrics & Gynecology Obstetrics
DX: R79.82 Elevated C-reactive protein (CRP); Z85.118 Personal history of other malignant neoplasm of bronchus and lung; R09.02 Hypoxemia; R93.1 Abnormal findings on diagnostic imaging of heart and coronary circulation; B97.81 Human metapneumovirus as the cause of diseases classified elsewhere; J44.1 Chronic obstructive pulmonary disease with (acute) exacerbation; B96.5 Pseudomonas (aeruginosa) (mallei) (pseudomallei) as the cause of diseases classified elsewhere; R06.02 Shortness of breath; Z79.01 Long term (current) use of anticoagulants; Z20.822 Contact with and (suspected) exposure to COVID-19; R07.89 Other chest pain

== ENCOUNTER 2025-05-18 09:40 | Observation (INO) ==
--- NOTE | 2025-05-18 10:00 | DR.SOBA ---
HPI Time Seen Time Seen by Provider: 05/18/25 09:48 Primary Care Physician Primary Care Physician: Brea Harrison Complaints Chief Complaint:: Patient was seen this AM for SOB onset 0100 hrs, he was treated and denied admission because he was feeling better. He states his SOB returned and he came back to ED. Self Treatment fo Chief Complaint: home O2 PRN COVID-19 Coronavirus risk:travel/contact w/high risk person: No Has patient experienced Coronavirus symptoms: No Source History Provided: Patient Mode of Arrival Mode of Arrival: Ambulatory Timing Onset of Chief Complaint: 05/18/25 PMH PMH Past Medical History: Yes Past Medical History: COPD, Diabetes, Hypertension, Kidney Stones and Cancer Past Medical History Comment: Cancer, lung blood clots, BPH, A fib Past Surgical History: Yes Surgical History: Appendectomy and Other Family History History of Family Medical Conditions: Yes Family Medical History: Diabetes Mellitus and Heart Failure Social History Does patient currently use any type of tobacco product: No Have you used tobacco products in the last 12 months: No Type of Tobacco Use: None Does any household member use tobacco: No Alcohol Use: None Do you use any recreational Drugs:: No Lives With: Alone Lives Where: Home Travel Risk Coronavirus risk:travel/contact w/high risk person: No Has patient experienced Coronavirus symptoms: No Infectious screening In the last 2 months have you had wt loss of >10#?: NO Have you had fever, night sweats or hemotysis?: No Have you traveled outside the country in the last 6 months?: No Isolation: Standard PE Vital Signs Vitals: Vital Signs Temperature 97.9 F Pulse Rate 84 Pulse Rate 86 Pulse Rate 84 Pulse Rate 87 Pulse Rate 88 Pulse Rate 85 Pulse Rate 85 Pulse Rate 86 Pulse Rate 87 Pulse Rate 96 Pulse Rate 89 Pulse Rate 87 Pulse Rate 88 Pulse Rate 90 Pulse Rate 92 Pulse Rate 91 Pulse Rate 93 Pulse Rate 93 Pulse Rate 95 Pulse Rate 97 Pulse Rate 96 Pulse Rate 95 Pulse Rate 132 Pulse Rate 136 Pulse Rate 127 Pulse Rate 139 Pulse Rate 141 Pulse Rate 135 Pulse Rate 142 Pulse Rate 136 Pulse Rate 138 Respiratory Rate 13 Respiratory Rate 22 Respiratory Rate 24 Respiratory Rate 23 Respiratory Rate 20 Respiratory Rate 22 Respiratory Rate 15 Respiratory Rate 18 Respiratory Rate 16 Respiratory Rate 13 Respiratory Rate 13 Respiratory Rate 20 Respiratory Rate 18 Respiratory Rate 13 Respiratory Rate 14 Respiratory Rate 12 Respiratory Rate 18 Respiratory Rate 20 Respiratory Rate 13 Respiratory Rate 22 Respiratory Rate 11 Respiratory Rate 10 Respiratory Rate 13 Respiratory Rate 14 Respiratory Rate 16 Respiratory Rate 18 Respiratory Rate 25 Respiratory Rate 12 Respiratory Rate 21 Respiratory Rate 20 Respiratory Rate 18 Blood Pressure 115/56 Blood Pressure 134/61 Blood Pressure 115/59 Blood Pressure 114/57 Blood Pressure 121/61 Blood Pressure 118/58 Blood Pressure 112/59 Blood Pressure 117/59 Blood Pressure 116/58 Blood Pressure 126/85 Blood Pressure 121/56 Blood Pressure 109/58 Blood Pressure 109/56 Blood Pressure 114/56 Blood Pressure 108/57 Blood Pressure 119/56 Blood Pressure 119/56 Blood Pressure 114/57 Blood Pressure 114/57 Blood Pressure 113/58 Blood Pressure 113/58 Blood Pressure 113/58 Blood Pressure 117/59 Blood Pressure 122/59 Blood Pressure 118/62 Blood Pressure 130/65 Blood Pressure 105/64 Blood Pressure 125/68 Blood Pressure 124/66 Blood Pressure 124/66 Blood Pressure 134/73 Blood Pressure 134/73 Blood Pressure 120/74 Blood Pressure 116/65 O2 Sat by Pulse Oximetry 99 O2 Sat by Pulse Oximetry 100 O2 Sat by Pulse Oximetry 99 O2 Sat by Pulse Oximetry 99 O2 Sat by Pulse Oximetry 99 O2 Sat by Pulse Oximetry 99 O2 Sat by Pulse Oximetry 98 O2 Sat by Pulse Oximetry 99 O2 Sat by Pulse Oximetry 99 O2 Sat by Pulse Oximetry 99 O2 Sat by Pulse Oximetry 98 O2 Sat by Pulse Oximetry 99 O2 Sat by Pulse Oximetry 99 O2 Sat by Pulse Oximetry 99 O2 Sat by Pulse Oximetry 99 O2 Sat by Pulse Oximetry 99 O2 Sat by Pulse Oximetry 100 O2 Sat by Pulse Oximetry 99 O2 Sat by Pulse Oximetry 96 O2 Sat by Pulse Oximetry 97 O2 Sat by Pulse Oximetry 96 O2 Sat by Pulse Oximetry 96 O2 Sat by Pulse Oximetry 96 O2 Sat by Pulse Oximetry 95 O2 Sat by Pulse Oximetry 96 O2 Sat by Pulse Oximetry 96 O2 Sat by Pulse Oximetry 96 O2 Sat by Pulse Oximetry 97 O2 Sat by Pulse Oximetry 97 O2 Sat by Pulse Oximetry 97 O2 Sat by Pulse Oximetry 97 [facility] Labs Reviewed Laboratory: D-Dimer 1.00 ug/ml (0.0-0.57) H 05/18/25 10:00 Creatine Kinase 35 Units/L (39-308) L 05/18/25 10:00 Troponin I High Sens 11.6 ng/L (4.0-60.0) 05/18/25 10:00 B-Natriuretic Peptide 82.7 pg/mL (0-79) H 05/18/25 10:00 Opioid Opioid Risk Tool Age (Santino box if 16-45): No History of Preadolescent Sexual Abuse: No Total: 0 Total Score Risk Category: Low Risk Copyright: [facility] predicting aberrant behaviors Discharge Plan Diagnosis Discharge Problem: Atrial fibrillation with RVR, Acute pulmonary embolism, Shortness of breath Discharge Plan Patient Disposition: ADMITTED INPATIENT Condition: Stable Orders to Discharge Patient Discharge Orders: Transfer (Routine); Ordered 05/18/25 Ordered By: JOSE PERES
--- NOTE | 2025-05-18 10:07 | EKG ---
Test Reason : A FIB Blood Pressure : */* mmHG Vent. Rate : 136 BPM Atrial Rate : * BPM P-R Int : * ms QRS Dur : 110 ms QT Int : 296 ms P-R-T Axes : * 104 22 degrees QTc Int : 445 ms Atrial fibrillation with rapid ventricular response with premature ventricular or aberrantly conducted complexes Indeterminate axis Pulmonary disease pattern Right bundle branch block Abnormal ECG When compared with ECG of 18-MAY-2025 03:40, No significant change was found Confirmed by Kristofer Salgado MD ([id number]) on 05/18/2025 11:37:55 AM Referred By: Confirmed By: Kristofer Salgado MD
[2025-05-18] MEDS: CARDIZEM INJ 50 MG VIAL IVP ONE (10:16)
[2025-05-18] MEDS: NS 1,000 ML IV 1,000 ML IV SCH (10:16)
--- NOTE | 2025-05-18 11:23 | EKG ---
Test Reason : repeat Blood Pressure : */* mmHG Vent. Rate : 97 BPM Atrial Rate : 97 BPM P-R Int : 190 ms QRS Dur : 100 ms QT Int : 356 ms P-R-T Axes : 71 -50 54 degrees QTc Int : 452 ms Normal sinus rhythm Left axis deviation Low voltage QRS Incomplete right bundle branch block Abnormal ECG When compared with ECG of 18-MAY-2025 10:06, (Unconfirmed) back in sinus rhythm with borderline first degree AV Block Confirmed by Kristofer Salgado MD ([id number]) on 05/18/2025 11:37:33 AM Referred By: Confirmed By: Kristofer Salgado MD
--- NOTE | 2025-05-18 11:59 | CT ---
EXAM: CT PULMONARY ANGIOGRAM CHEST WITH CONTRAST (PE PROTOCOL) HISTORY: SOB, ELEV D DIMER; AFIB, HTN, ASTHMA, DM COMPARISON: CT dated 04/16/2023; chest x-ray from today. TECHNIQUE: Axial CT images were obtained through the chest after the intravenous administration of IV contrast. Coronal reformatted images were included. Maximum intensity projection (MIP) images were performed per pulmonary angiogram protocol. Informed written consent was obtained prior to contrast administration. All CT scans at this facility use dose modulation, iterative reconstruction, and/or weight based dosing when appropriate to reduce radiation dose to as low as reasonably achievable. FINDINGS: There are multiple bilateral segmental and subsegmental pulmonary emboli with small clot burden. Normal caliber main pulmonary artery. Normal RV/LV ratio measures less than 1. No pericardial effusion. [id number] emphysema. Scattered patchy reticular opacities in the left upper lobe. In the anterior right perihilar region, there is a 2.8 x 2.2 cm reticular opacification that appears somewhat linear on coronal and sagittal series. No pleural effusion or pneumothorax. Osteopenia. No evidence of vertebral body compression fracture. Mild multilevel degenerative disc disease. No acute findings in the visualized upper abdomen. IMPRESSION: 1. Multiple bilateral pulmonary emboli with small clot burden and no CT evidence of right heart strain. 2. Right anterior perihilar 2.8 x 2.2 cm opacification. This appears somewhat linear on coronal and sagittal series and may represent scarring. Given advanced underlying emphysema, consider follow-up PET-CT for further evaluation. THIS IS AN ELECTRONICALLY VERIFIED FINAL REPORT 05/18/2025 11:56 AM - Electronically signed by Sherman Verde MD
[2025-05-18] MEDS: OMNIPAQUE 350 mg/mL 100 mL BTL 100 ML ONE (13:04)
[2025-05-18] MEDS: CARDIZEM INJ 50 MG VIAL ONE (13:04)
[2025-05-18 13:29] VITALS: BMI 24.2
[2025-05-18] MEDS: KLOR-CON 10 MEQ TAB PO SCH (15:15)
[2025-05-18] MEDS: LEVAQUIN PREMIX IV 500 MG 500 MG/100 ML BAG IV SCH (16:00)
[2025-05-18] MEDS: XOPENEX 1.25 MG/3 ML NEBULE NEB SCH (16:44)
[2025-05-18] MEDS: GLUCOPHAGE PO SCH (20:55)
[2025-05-18] MEDS: ELIQUIS PO SCH (20:55)
[2025-05-18] MEDS: LOPRESSOR TAB 25 MG PO SCH (20:55)
[2025-05-18] MEDS: MULTAQ PO SCH (20:56)
[2025-05-18] MEDS: SINGULAIR TAB 10 MG PO SCH (20:57)
[2025-05-18] MEDS: PULMICORT NEB TX 0.5 MG NEB SCH (20:59)
[2025-05-18] MEDS ORDERED: [UNRECOGNIZED DRUG - OTHER] IN SCH (21:00)
[2025-05-18] MEDS: CARAFATE PO SCH (22:10)
[2025-05-19 04:51] LABS: MEAN PLATELET VOLUME 7.1 fL (7.4-11.0); RED CELL DISTRIBUTION WIDTH 19.5 % (11.6-16.5)
[2025-05-19] MEDS: GLUCOPHAGE ONE (04:56)
[2025-05-19 05:02] LABS: COR NA(FOR HYPERGLY) 141 mmol/L (136-145); CREATININE 0.94 mg/dL (0.70-1.30); eGFR NON BLACK RACES > 60 (>60)
[2025-05-19] MEDS ORDERED: CONSULT PHARMACY - POTASSIUM & MAGNESIUM XX SCH (07:00)
[2025-05-19] MEDS ORDERED: GLUCOPHAGE ONE (08:26)
[2025-05-19] MEDS: PREDNISONE TAB 10 MG PO SCH (08:32)
[2025-05-19] MEDS: ZOLOFT PO SCH (08:32)
[2025-05-19] MEDS: FLOMAX PO SCH (08:32)
[2025-05-19] MEDS: DALIRESP PO SCH (08:33)
[2025-05-19] MEDS: MAG-OX TAB PO SCH (08:33)
[2025-05-19] MEDS: TAB-A-VITE PO SCH (08:33)
[2025-05-19] MEDS ORDERED: PATIENT'S HOME MEDICATION (Tiotropium Bromide [Spiriva Respimat] 2.5 mcg/actuation Mist) IN SCH (09:00)
[2025-05-19] MEDS ORDERED: PATIENT'S HOME MEDICATION (Mecobalamin (Vitamin B12) [B12 Active] 1,000 mcg Tablet,Chewabl PO SCH (09:00)
[2025-05-19] MEDS ORDERED: PHARMACY CONSULT XX SCH (09:00)
--- NOTE | 2025-05-19 11:33 | DR.H&P ---
H&P History & Physical for Day of: H&P Date: 05/19/25 Chief Complaint Chief Complaint: sob History of Present Illness History of Present Illness: Patient is a 80-year-old male with a past medical history of lung cancer with brain metastases, COPD, type 2 diabetes, hypertension, history of renal stones and anemia presented with worsening shortness of breath. ER workup included labs which showed elevated D-dimer and ABG concerning for hypoxia. CTA chest was done which did show multiple bilateral small pulmonary emboli, small clot burden with no right heart strain. He was placed on 2 L nasal cannula and started on Eliquis. He was noted to be in A-fib RVR in the ER, given diltiazem IV. Patient does have a history of PE in the past and used to be on Eliquis 5 mg twice daily. He did have stool occult positive and hemoptysis so his Eliquis was stopped for a few months. He recently restarted taking Eliquis 2.5 mg twice daily as per oncology. He was admitted for further evaluation. Labs/imaging reviewed: - WBC 15.6 hemoglobin 13.4 platelet 243 potassium 4.1 creatinine 0.94 -D-dimer elevated, troponin x 3 negative BNP 82.7 Agnes[place] 1.8 - CT a chest reviewed - AIT respiratory negative - Sputum culture normal se Plan: Admit to [facility] with telemetry. Continue Eliquis 10 mg twice daily x 1 week and then 5 mg twice daily. Denies any active bleeding at this time. Resume home medications. Wean O2 as tolerated. Patient does have home oxygen, uses it as needed. Add bronchodilators. Physical therapy consult. Replace electrolytes as per protocol. Monitor a.m. labs and imaging. Time spent for clinical assessment, reviewing labs and imaging, physical exam, decision making and documentation greater than 45 minutes. Past Medical History Past Medical History: COPD, Diabetes, Hypertension, Kidney Stones and Cancer Past Surgical History Surgical History: Appendectomy, Ortho Surgery and Lithotripsy Family History Family Medical History: Diabetes Mellitus and Heart Failure Social History Does patient currently use any type of tobacco product: No Have you used tobacco products in the last 12 months: No Type of Tobacco Use: None Does any household member use tobacco: No Alcohol Use: None Drug Use: None Medications Home Medications: Home Medications Medication Instructions Recorded Confirmed Type metoprolol tartrate 25 mg tablet 25 mg PO BID 04/15/23 05/18/25 History omeprazole 20 mg capsule,delayed 20 mg PO BID 04/15/23 05/18/25 History release prednisone 10 mg tablet 10 mg PO DAILY 04/15/2306/05 History sertraline 25 mg tablet 25 mg PO DAILY 04/15/2306/05 History tamsulosin 0.4 mg capsule 0.4 mg PO QDAY 04/15/2306/05 History multivitamin-ferrous 1 tab PO QDAY 03/07/2405/18 History fumarate-folic acid 18 mg-400 mcg tablet (Centrum Complete) sucralfate 1 gram tablet 1 g PO TID 03/07/24 05/18/25 History tiotropium bromide 2.5 2 puff inhalation QDAY 03/0705/18/25 History mcg/actuation mist for inhalation (Spiriva Respimat) dupilumab 300 mg/2 mL subcutaneous 300 mg subcut Q2W 0 08/06/24 05/18/25 History pen injector (Dupixent) sodium chloride 6 % for 3 ml TID 08/06/24 05/18/25 H istory nebulization (NebuSal) apixaban 2.5 mg tablet (Eliquis) 2.5 mg PO BID 5 05/18/25 History dronedarone 400 mg tablet 400 mg PO BID 02/09/2505/18 History potassium chloride 20 mEq 10 meq PO Q OTHER DAY 05/18/25 History tablet,extended release(part/cryst) doxycycline monohydrate 100 mg 100 mg PO BID 05/18/25 05/18/25 History capsule fluticasone 500 mcg-salmeterol 50 1 inh inhalation BID 05/18/25 05/18/25 History mcg/dose blistr powdr for inhalation (Wixela Inhub) mecobalamin (vitamin B12) 1,000 1,000 mcg PO QDAY 06/0505/18/25 History mcg chewable tablet (B12 Active) metformin 500 mg tablet 500 mg PO BID 05/18/2505/18 History Allergies Allergies Allergy/AdvReac Type Severity Reaction Status Date / Time erythromycin base Allergy Verified 05/18/25 03:52 Sulfa (Sulfonamide Allergy Verified 05/18/25 03:52 Antibiotics) (SULFA) Labs 05/19/25 04:17 05/19/25 04:17 Labs: 05/18/25 21:00 Sputum - Expectorated Sputum Sputum Culture - Preliminary 05/18/25 21:00 Sputum - Expectorated Sputum - Final Laboratory WBC 15.6 X10^3/uL (3.6-10.0) H 05/19/25 04:17 RBC 4.64 X10^6/uL (4.7-6.0) L 05/19/25 04:17 Hgb 13.4 g/dL (13.5-18.0) L 05/19/25 04:17 Hct 39.6 % (42.0-54.0) L 05/19/25 04:17 MCV 85.3 fL (80.0-100.0) 05/19/25 04:17 MCH 28.9 pg (27.0-34.0) 05/19/25 04:17 MCHC 33.8 g/dL (33.0-35.0) 05/19/25 04:17 RDW 19.5 % (11.6-16.5) H 05/19/25 04:17 Plt Count 243 X10^3/uL (150.0-450.0) 05/19/25 04:17 MPV 7.1 fL (7.4-11.0) L 05/19/25 04:17 Neut % (Auto) 84.5 % (42.0-75.0) H 05/19/25 04:17 Lymph % (Auto) 8.9 % (21.0-51.0) L 05/19/25 04:17 Graham % (Auto) 6.3 % (0.0-13.0) 05/19/25 04:17 Eos % (Auto) 0.1 % (0.9-2.9) L 05/19/25 04:17 Baso % (Auto) 0.2 % (0.2-1.0) 05/19/25 04:17 Neut # (Auto) 13.2 x10^3/uL (2.2-4.8) H 05/19/25 04:17 Lymph # (Auto) 1.4 X10^3/uL (1.3-2.9) 05/19/25 04:17 Graham # (Auto) 1.0 x10^3/uL (0.3-0.8) H 05/19/25 04:17 Eos # (Auto) 0.0 x10^3/uL (0.0-0.2) 05/19/25 04:17 Baso # (Auto) 0.0 X10^3/uL (0.0-0.1) 05/19/25 04:17 Absolute Nucleated RBC 0.1 /100WBC 05/19/25 04:17 D-Dimer 1.00 ug/ml (0.0-0.57) H 05/18/25 10:00 Sodium 140 mmol/L (136-145) 05/19/25 04:17 Corrected Sodium 141 mmol/L (136-145) 05/19/25 04:17 Potassium 4.1 mmol/L (3.5-5.1) 05/19/25 04:17 Chloride 103 mmol/L (98-107) 05/19/25 04:17 Carbon Dioxide 24.7 mmol/L (21-32) 05/19/25 04:17 BUN 15 mg/dL (7-18) 05/19/25 04:17 Creatinine 0.94 mg/dL (0.70-1.30) 05/19/25 04:17 Est GFR (MDRD) Af Amer > 60 (>60) 05/19/25 04:17 Est GFR (MDRD) Non-Af > 60 (>60) 05/19/25 04:17 Glucose 127 mg/dL (65-99) H 05/19/25 04:17 Calcium 9.6 mg/dL (8.5-10.1) 05/19/25 04:17 Corrected Calcium TNP 05/19/25 04:17 Magnesium 1.8 mg/dL (2.0-2.9) L 05/19/25 04:17 Total Bilirubin 0.30 mg/dL (0.2-1.0) 05/19/25 04:17 AST 12 Units/L (15-37) L 05/19/25 04:17 ALT 31 Units/L (12-78) 05/19/25 04:17 Alkaline Phosphatase 97 Units/L (46-116) 05/19/25 04:17 Creatine Kinase 35 Units/L (39-308) L 05/18/25 10:00 Troponin I High Sens 8.4 ng/L (4.0-60.0) 05/18/25 20:16 B-Natriuretic Peptide 82.7 pg/mL (0-79) H 05/18/25 10:00 Total Protein 7.6 g/dL (6.4-8.2) 05/19/25 04:17 Albumin 3.5 g/dL (3.4-5.0) 05/19/25 04:17 Globulin 4.1 g/dL (2.5-4.5) 05/19/25 04:17 Albumin/Globulin Ratio 0.9 Ratio (1.1-2.1) L 05/19/25 04:17 Resp Viral Panel (PCR) See scanned report 05/18/25 13:53 Review of Systems Constitutional: No Symptoms Reported Eyes: No Symptoms Reported ENT: No Symptoms Reported Respiratory: Cough, Shortness of Breath and SOB with Excertion Cardiovascular: No Symptoms Reported Gastrointestinal: No Symptoms Reported Genitourinary: No Symptoms Reported Musculoskeletal: No Symptoms Reported Skin: No Symptoms Reported Neurological: No Symptoms Reported Physical Exam Vital Signs: Vital Signs Temperature 98.3 F Temperature 97.9 F Pulse Rate [Left Radial] 101 Pulse Rate [Left Radial] 82 Pulse Rate 104 Pulse Rate 86 Respiratory Rate 22 Respiratory Rate 18 Blood Pressure [Left Arm] 156/71 Blood Pressure [Left Arm] 153/74 O2 Sat by Pulse Oximetry 96 O2 Sat by Pulse Oximetry 96 O2 Sat by Pulse Oximetry 98 O2 Sat by Pulse Oximetry 98 Oriented: Normal Respiratory: Diminished Throughout Cardiovascular: Normal Auscultation: Bowel Sounds: Normal Palpation: Normal Tenderness: Normal Skin: Normal Musculoskeletal: Normal Psychiatric: Normal Mood Description: Calm Affect: Normal Speech Pattern: Clear and Appropriate Assessment/Plan (1) Acute pulmonary embolism: Status: Acute (2) Atrial fibrillation with RVR: Status: Acute (3) Hypertension: Qualifiers: Hypertension type: primary hypertension Qualified Code(s): I10 - Essential (primary) hypertension Status: Chronic (4) Lung cancer: Qualifiers: Laterality: right Lung location: upper lobe of lung Qualified Code(s): C34.11 - Malignant neoplasm of upper lobe, right bronchus or lung Status: Chronic (5) Generalized weakness: Status: Acute (6) Hypomagnesemia: Status: Acute Review H&P Reviewed: Yes Patient was examined?: Yes
[2025-05-19] MEDS: TYLENOL 325 MG TAB PO PRN (13:28)
[2025-05-19] MEDS: VALIUM PO PRN (23:13)
[2025-05-20 04:42] VITALS: RESP 20; TEMP 97.6
[2025-05-20 05:21] LABS: MEAN PLATELET VOLUME 7.0 fL (7.4-11.0); RED CELL DISTRIBUTION WIDTH 19.2 % (11.6-16.5)
[2025-05-20 05:52] LABS: COR CA(FOR HYPOALB) 9.6 mg/dL (8.5-10.1); COR NA(FOR HYPERGLY) 140 mmol/L (136-145); CREATININE 0.87 mg/dL (0.70-1.30); eGFR NON BLACK RACES > 60 (>60)
[2025-05-20] MEDS ORDERED: CONSULT PHARMACY - POTASSIUM & MAGNESIUM XX SCH (07:00)
[2025-05-20 07:53] VITALS: BP 133/72
[2025-05-20] MEDS: MAG-OX TAB PO SCH (08:20)
[2025-05-20 08:34] VITALS: PULSE 95; O2SAT 96
--- NOTE | 2025-05-25 10:00 | W.DIS.FURT ---
Summary of Discharge Discharge Summary of Date Date of Exam: 05/20/25 Admission Date Date of Admission: 05/18/25 Admission Diagnosis Patient Problems (Updated 05/19/25 @ 11:33 by Georgie Contreras MD) Shortness of breath (Acute) R06.02 Acute pulmonary embolism (Acute) I26.99 Atrial fibrillation with RVR (Acute) I48.91 Hospital Course: Patient is a 80-year-old male with a past medical history of lung cancer with brain metastases, COPD, type 2 diabetes, hypertension, history of renal stones and anemia presented with worsening shortness of breath. ER workup included labs which showed elevated D-dimer and ABG concerning for hypoxia. CTA chest was done which did show multiple bilateral small pulmonary emboli, small clot burden with no right heart strain. He was placed on 2 L nasal cannula and st arted on Eliquis. He was noted to be in A-fib RVR in the ER, given diltiazem IV. Patient does have a history of PE in the past and used to be on Eliquis 5 mg twice daily. He did have stool occult positive and hemoptysis so his Eliquis was stopped for a few months. He recently restarted taking Eliquis 2.5 mg twice daily as per oncology. He was admitted for further evaluation. His labs are monitored daily and electrolytes replace as needed. He did not have any active bleeding. He was doing well. He was initially started on antibiotic but AIT respiratory was negative along with sputum culture which showed normal se. Physical therapy was consulted. He was requiring 2 L nasal cannula. Patient does have home oxygen. He was stable to be discharged home on Eliquis. He will also have home health services. He will follow-up with PCP and oncologist as scheduled. Vital Signs: Vital Signs (72 hours) 05/18/25 06:32 05/18/25 09:41 05/18/25 09:45 Temperature 97.9 F Pulse Rate 138 H 136 H Pulse Rate [Left Radial] Respiratory Rate 18 20 Blood Pressure 116/65 120/74 Blood Pressure [Left Arm] O2 Sat by Pulse Oximetry 97 97 Oxygen Delivery Method Room Air Oxygen Flow Rate FIO2% 05/18/25 10:00 05/18/25 10:15 05/18/25 10:20 Temperature Pulse Rate 142 H 135 H 141 H Pulse Rate [Left Radial] Respiratory Rate 21 12 25 H Blood Pressure Blood Pressure [Left Arm] O2 Sat by Pulse Oximetry 97 97 96 Oxygen Delivery Method Oxygen Flow Rate FIO2% 05/18/25 10:22 05/18/25 10:22 05/18/25 10:25 Temperature Pulse Rate Pulse Rate [Left Radial] Respiratory Rate Blood Pressure 134/73 134/73 124/66 Blood Pressure [Left Arm] O2 Sat by Pulse Oximetry Oxygen Delivery Method Oxygen Flow Rate FIO2% 05/18/25 10:25 05/18/25 10:25 05/18/25 10:30 Temperature Pulse Rate 139 H Pulse Rate [Left Radial] Respiratory Rate 18 Blood Pressure 124/66 125/68 Blood Pressure [Left Arm] O2 Sat by Pulse Oximetry 96 Oxygen Delivery Method Oxygen Flow Rate FIO2% 05/18/25 10:30 05/18/25 10:35 05/18/25 10:35 Temperature Pulse Rate 127 H 136 H Pulse Rate [Left Radial] Respiratory Rate 16 14 Blood Pressure 105/64 Blood Pressure [Left Arm] O2 Sat by Pulse Oximetry 96 95 Oxygen Delivery Method Oxygen Flow Rate FIO2% 05/18/25 10:40 05/18/25 10:40 05/18/25 10:45 Temperature Pulse Rate 132 H 95 H Pulse Rate [Left Radial] Respiratory Rate 13 10 L Blood Pressure 130/65 Blood Pressure [Left Arm] O2 Sat by Pulse Oximetry 96 96 Oxygen Delivery Method Oxygen Flow Rate FIO2% 05/18/25 10:45 05/18/25 10:50 05/18/25 10:50 Temperature Pulse Rate 96 H Pulse Rate [Left Radial] Respiratory Rate 11 L Blood Pressure 118/62 122/59 Blood Pressure [Left Arm] O2 Sat by Pulse Oximetry 96 Oxygen Delivery Method Oxygen Flow Rate FIO2% 05/18/25 10:55 05/18/25 10:55 05/18/25 11:00 Temperature Pulse Rate 97 H Pulse Rate [Left Radial] Respiratory Rate 22 Blood Pressure 117/59 113/58 Blood Pressure [Left Arm] O2 Sat by Pulse Oximetry 97 Oxygen Delivery Method Oxygen Flow Rate FIO2% 05/18/25 11:00 05/18/25 11:00 05/18/25 11:00 Temperature Pulse Rate 95 H Pulse Rate [Left Radial] Respiratory Rate 13 Blood Pressure 113/58 113/58 Blood Pressure [Left Arm] O2 Sat by Pulse Oximetry 96 Oxygen Delivery Method Oxygen Flow Rate FIO2% 05/18/25 11:16 05/18/25 11:17 05/18/25 11:18 Temperature Pulse Rate 93 H 93 H Pulse Rate [Left Radial] Respiratory Rate 20 18 Blood Pressure 114/57 Blood Pressure [Left Arm] O2 Sat by Pulse Oximetry 99 100 Oxygen Delivery Method Oxygen Flow Rate FIO2% 05/18/25 11:18 05/18/25 11:20 05/18/25 11:20 Temperature Pulse Rate Pulse Rate [Left Radial] Respiratory Rate Blood Pressure 114/57 119/56 119/56 Blood Pressure [Left Arm] O2 Sat by Pulse Oximetry Oxygen Delivery Method Oxygen Flow Rate FIO2% 05/18/25 11:20 05/18/25 11:25 05/18/25 11:25 Temperature Pulse Rate 91 H 92 H Pulse Rate [Left Radial] Respiratory Rate 12 14 Blood Pressure 108/57 Blood Pressure [Left Arm] O2 Sat by Pulse Oximetry 99 99 Oxygen Delivery Method Oxygen Flow Rate FIO2% 05/18/25 11:30 05/18/25 11:30 05/18/25 11:35 Temperature Pulse Rate 90 Pulse Rate [Left Radial] Respiratory Rate 13 Blood Pressure 114/56 109/56 Blood Pressure [Left Arm] O2 Sat by Pulse Oximetry 99 Oxygen Delivery Method Oxygen Flow Rate FIO2% 05/18/25 11:35 05/18/25 11:40 05/18/25 11:40 Temperature Pulse Rate 88 87 Pulse Rate [Left Radial] Respiratory Rate 18 20 Blood Pressure 109/58 Blood Pressure [Left Arm] O2 Sat by Pulse Oximetry 99 99 Oxygen Delivery Method Oxygen Flow Rate FIO2% 05/18/25 11:45 05/18/25 11:45 05/18/25 11:50 Temperature Pulse Rate 89 Pulse Rate [Left Radial] Respiratory Rate 13 Blood Pressure 121/56 126/85 Blood Pressure [Left Arm] O2 Sat by Pulse Oximetry 98 Oxygen Delivery Method Oxygen Flow Rate FIO2% 05/18/25 11:50 05/18/25 11:55 05/18/25 11:55 Temperature Pulse Rate 96 H 87 Pulse Rate [Left Radial] Respiratory Rate 13 16 Blood Pressure 116/58 Blood Pressure [Left Arm] O2 Sat by Pulse Oximetry 99 99 Oxygen Delivery Method Oxygen Flow Rate FIO2% 05/18/25 12:00 05/18/25 12:00 05/18/25 12:05 Temperature Pulse Rate 86 Pulse Rate [Left Radial] Respiratory Rate 18 Blood Pressure 117/59 112/59 Blood Pressure [Left Arm] O2 Sat by Pulse Oximetry 99 Oxygen Delivery Method Oxygen Flow Rate FIO2% 05/18/25 12:05 05/18/25 12:10 05/18/25 12:10 Temperature Pulse Rate 85 85 Pulse Rate [Left Radial] Respiratory Rate 15 22 Blood Pressure 118/58 Blood Pressure [Left Arm] O2 Sat by Pulse Oximetry 98 99 Oxygen Delivery Method Oxygen Flow Rate FIO2% 05/18/25 12:15 05/18/25 12:15 05/18/25 12:20 Temperature Pulse Rate 88 Pulse Rate [Left Radial] Respiratory Rate 20 Blood Pressure 121/61 114/57 Blood Pressure [Left Arm] O2 Sat by Pulse Oximetry 99 Oxygen Delivery Method Oxygen Flow Rate FIO2% 05/18/25 12:20 05/18/25 12:25 05/18/25 12:25 Temperature Pulse Rate 87 84 Pulse Rate [Left Radial] Respiratory Rate 23 24 Blood Pressure 115/59 Blood Pressure [Left Arm] O2 Sat by Pulse Oximetry 99 99 Oxygen Delivery Method Oxygen Flow Rate FIO2% 05/18/25 12:30 05/18/25 12:30 05/18/25 12:35 Temperature Pulse Rate 86 84 Pulse Rate [Left Radial] Respiratory Rate 22 13 Blood Pressure 134/61 Blood Pressure [Left Arm] O2 Sat by Pulse Oximetry 100 99 Oxygen Delivery Method Oxygen Flow Rate FIO2% 05/18/25 12:35 05/18/25 13:00 05/18/25 13:03 Temperature 97.5 F L Pulse Rate Pulse Rate [Left Radial] 91 H Respiratory Rate 20 Blood Pressure 115/56 Blood Pressure [Left Arm] 118/61 O2 Sat by Pulse Oximetry 100 Oxygen Delivery Method Nasal Cannula Nasal Cannula Oxygen Flow Rate 2 2 FIO2% 05/18/25 13:28 05/18/25 13:31 05/18/25 13:45 Temperature 97.5 F L Pulse Rate 91 H 91 H Pulse Rate [Left Radial] Respiratory Rate Blood Pressure 115/56 Blood Pressure [Left Arm] O2 Sat by Pulse Oximetry 100 100 Oxygen Delivery Method Nasal Cannula Nasal Cannula Oxygen Flow Rate 2 2 FIO2% 28 05/18/25 16:00 05/18/25 16:44 05/18/25 19:00 Temperature 97.7 F Pulse Rate 94 H Pulse Rate [Left Radial] 94 H Respiratory Rate 21 Blood Pressure Blood Pressure [Left Arm] 138/69 O2 Sat by Pulse Oximetry 97 97 Oxygen Delivery Method Nasal Cannula Nasal Cannula Oxygen Flow Rate 2 2 FIO2% 05/18/25 20:00 05/18/25 20:55 05/18/25 20:59 Temperature 97.5 F L Pulse Rate 90 Pulse Rate [Left Radial] 101 H Respiratory Rate 22 Blood Pressure Blood Pressure [Left Arm] 136/68 O2 Sat by Pulse Oximetry 97 99 Oxygen Delivery Method Nasal Cannula Nasal Cannula Oxygen Flow Rate 2 2 FIO2% 28 05/18/25 23:18 05/19/25 03:29 05/19/25 05:35 Temperature 97.9 F 97.9 F Pulse Rate 86 Pulse Rate [Left Radial] 88 82 Respiratory Rate 20 18 Blood Pressure Blood Pressure [Left Arm] 133/64 153/74 O2 Sat by Pulse Oximetry 97 98 98 Oxygen Delivery Method Nasal Cannula Nasal Cannula Oxygen Flow Rate 2 2 FIO2% 05/19/25 07:00 05/19/25 08:00 05/19/25 08:39 Temperature 98.3 F Pulse Rate Pulse Rate [Left Radial] 101 H Respiratory Rate 22 Blood Pressure Blood Pressure [Left Arm] 156/71 O2 Sat by Pulse Oximetry 96 Oxygen Delivery Method Nasal Cannula Nasal Cannula Nasal Cannula Oxygen Flow Rate 2 2 2 FIO2% 28 05/19/25 08:39 05/19/25 12:00 05/19/25 13:28 Temperature 97.5 F L Pulse Rate 104 H Pulse Rate [Left Radial] 93 H Respiratory Rate 25 H 20 Blood Pressure Blood Pressure [Left Arm] 160/77 O2 Sat by Pulse Oximetry 96 98 Oxygen Delivery Method Nasal Cannula Oxygen Flow Rate 2 FIO2% 05/19/25 14:27 05/19/25 16:00 05/19/25 19:00 Temperature 97.9 F Pulse Rate Pulse Rate [Left Radial] 97 H Respiratory Rate 20 22 Blood Pressure Blood Pressure [Left Arm] 140/75 O2 Sat by Pulse Oximetry 96 Oxygen Delivery Method Nasal Cannula Nasal Cannula Oxygen Flow Rate 2 2 FIO2% 05/19/25 20:00 05/19/25 20:37 05/19/25 20:55 Temperature 97.9 F Pulse Rate Pulse Rate [Left Radial] 105 H Respiratory Rate 22 20 Blood Pressure Blood Pressure [Left Arm] 134/75 O2 Sat by Pulse Oximetry 93 L Oxygen Delivery Method Nasal Cannula Nasal Cannula Oxygen Flow Rate 2 2 FIO2% 28 05/19/25 20:55 05/19/25 21:37 05/20/25 00:00 Temperature 97.2 F L Pulse Rate 119 H Pulse Rate [Left Radial] 104 H Respiratory Rate 20 22 Blood Pressure Blood Pressure [Left Arm] 152/72 O2 Sat by Pulse Oximetry 98 95 Oxygen Delivery Method Nasal Cannula Oxygen Flow Rate 2 FIO2% 05/20/25 04:00 05/20/25 06:00 05/20/25 07:00 Temperature 97.6 F Pulse Rate 87 Pulse Rate [Left Radial] 73 Respiratory Rate 20 Blood Pressure Blood Pressure [Left Arm] 138/63 O2 Sat by Pulse Oximetry 98 97 Oxygen Delivery Method Nasal Cannula Nasal Cannula Oxygen Flow Rate 2 2 FIO2% 05/20/25 07:52 05/20/25 08:32 05/20/25 08:32 Temperature 97.6 F Pulse Rate 95 H Pulse Rate [Left Radial] 98 H Respiratory Rate 20 Blood Pressure Blood Pressure [Left Arm] 133/72 O2 Sat by Pulse Oximetry 95 96 Oxygen Delivery Method Nasal Cannula Nasal Cannula Oxygen Flow Rate 2 2 FIO2% 28 Labs: Laboratory Last Values WBC 8.6 X10^3/uL (3.6-10.0) 05/20/25 04:46 RBC 4.36 X10^6/uL (4.7-6.0) L 05/20/25 04:46 Hgb 12.9 g/dL (13.5-18.0) L 05/20/25 04:46 Hct 37.1 % (42.0-54.0) L 05/20/25 04:46 MCV 85.2 fL (80.0-100.0) 05/20/25 04:46 MCH 29.5 pg (27.0-34.0) 05/20/25 04:46 MCHC 34.7 g/dL (33.0-35.0) 05/20/25 04:46 RDW 19.2 % (11.6-16.5) H 05/20/25 04:46 Plt Count 223 X10^3/uL (150.0-450.0) 05/20/25 04:46 MPV 7.0 fL (7.4-11.0) L 05/20/25 04:46 Neut % (Auto) 77.0 % (42.0-75.0) H 05/20/25 04:46 Lymph % (Auto) 13.1 % (21.0-51.0) L 05/20/25 04:46 [place] % (Auto) 9.0 % (0.0-13.0) 05/20/25 04:46 Eos % (Auto) 0.6 % (0.9-2.9) L 05/20/25 04:46 Baso % (Auto) 0.3 % (0.2-1.0) 05/20/25 04:46 Neut # (Auto) 6.6 x10^3/uL (2.2-4.8) H 05/20/25 04:46 Lymph # (Auto) 1.1 X10^3/uL (1.3-2.9) L 05/20/25 04:46 [place] # (Auto) 0.8 x10^3/uL (0.3-0.8) 05/20/25 04:46 Eos # (Auto) 0.1 x10^3/uL (0.0-0.2) 05/20/25 04:46 Baso # (Auto) 0.0 X10^3/uL (0.0-0.1) 05/20/25 04:46 Absolute Nucleated RBC 0.1 /100WBC 05/20/25 04:46 D-Dimer 1.00 ug/ml (0.0-0.57) H 05/18/25 10:00 Sodium 140 mmol/L (136-145) 05/20/25 04:46 Corrected Sodium 140 mmol/L (136-145) 05/20/25 04:46 Potassium 3.8 mmol/L (3.5-5.1) 05/20/25 04:46 Chloride 104 mmol/L (98-107) 05/20/25 04:46 Carbon Dioxide 28.1 mmol/L (21-32) 05/20/25 04:46 BUN 15 mg/dL (7-18) 05/20/25 04:46 Creatinine 0.87 mg/dL (0.70-1.30) 05/20/25 04:46 Est GFR (MDRD) Af Amer > 60 (>60) 05/20/25 04:46 Est GFR (MDRD) Non-Af > 60 (>60) 05/20/25 04:46 Glucose 116 mg/dL (65-99) H 05/20/25 04:46 Calcium 8.9 mg/dL (8.5-10.1) 05/20/25 04:46 Corrected Calcium 9.6 mg/dL (8.5-10.1) 05/20/25 04:46 Magnesium 2.0 mg/dL (2.0-2.9) 05/20/25 04:46 Total Bilirubin 0.30 mg/dL (0.2-1.0) 05/20/25 04:46 AST 16 Units/L (15-37) 05/20/25 04:46 ALT 29 Units/L (12-78) 05/20/25 04:46 Alkaline Phosphatase 102 Units/L (46-116) 05/20/25 04:46 Creatine Kinase 35 Units/L (39-308) L 05/18/25 10:00 Troponin I High Sens 8.4 ng/L (4.0-60.0) 05/18/25 20:16 B-Natriuretic Peptide 82.7 pg/mL (0-79) H 05/18/25 10:00 Total Protein 6.9 g/dL (6.4-8.2) 05/20/25 04:46 Albumin 3.1 g/dL (3.4-5.0) L 05/20/25 04:46 Globulin 3.8 g/dL (2.5-4.5) 05/20/25 04:46 Albumin/Globulin Ratio 0.8 Ratio (1.1-2.1) L 05/20/25 04:46 Resp Viral Panel (PCR) See scanned report 05/18/25 13:53 Reason For Visit: PULMONARY EMBOLISM, AFIB WITH RVR, PNEUMONIA SOB Discharge Diagnosis All Active Problems (Updated 05/19/25 @ 11:33 by Georgie Contreras MD) Hypomagnesemia (Acute) Generalized weakness (Acute) Shortness of breath (Acute) Acute pulmonary embolism (Acute) Atrial fibrillation with RVR (Acute) SVT (supraventricular tachycardia) (Acute) Hypertension (Chronic) Lung cancer (Chronic) Hemoptysis (Acute) Bacterial UTI (Acute) Right nephrolithiasis (Acute) Atrial fibrillation (Acute) History of lung cancer (Acute) Headache (Acute) Neoplasm causing mass effect and brain compression on adjacent structures (Acute) Hypoxemia (Acute) Acute exacerbation of chronic obstructive pulmonary disease (Acute) Pneumonia (Acute) COPD exacerbation (Acute) New onset a-fib (Acute) BPH (benign prostatic hyperplasia) (Acute) Pulmonary embolism (Acute) COPD with hypoxia (Acute) Dyspnea (Acute) Pneumonia, viral (Acute) Urinary obstruction (Acute) Calculus of distal right ureter (Acute) Acute right flank pain (Acute) Pneumonia (Acute) Plan of Treatment: Continue with present treatment and follow up plan. Pt is to keep follow up appointment as instructed and take medications as ordered. Discharge Medications Discharge Medications: erythromycin base Allergy (Verified 05/18/25 03:52) Sulfa (Sulfonamide Antibiotics) (SULFA) Allergy (Verified 05/18/25 03:52) New Prescriptions apixaban 5 mg tablet (Eliquis) 5 mg PO BID 30 days #60 tabs 05/19/25 [Rx] Discharge Disposition Assessment: No distress noted. Discharge Disposition: home Discharge Condition: stable Discharge Plan Discharge Plan Hospital Course: Patient is a 80-year-old male with a past medical history of lung cancer with brain metastases, COPD, type 2 diabetes, hypertension, history of renal stones and anemia presented with worsening shortness of breath. ER workup included labs which showed elevated D-dimer and ABG concerning for hypoxia. CTA chest was done which did show multiple bilateral small pulmonary emboli, small clot burden with no right heart strain. He was placed on 2 L nasal cannula and started on Eliquis. He was noted to be in A-fib RVR in the ER, given diltiazem IV. Patient does have a history of PE in the past and used to be on Eliquis 5 mg twice daily. He did have stool occult positive and hemoptysis so his Eliquis was stopped for a few months. He recently restarted taking Eliquis 2.5 mg twice daily as per oncology. He was admitted for further evaluation. His labs are monitored daily and electrolytes replace as needed. He did not have any active bleeding. He was doing well. He was initially started on antibiotic but AIT respiratory was negative along with sputum culture which showed normal se. Physical therapy was consulted. He was requiring 2 L nasal cannula. Patient does have home oxygen. He was stable to be discharged home on Eliquis. He will also have home health services. He will follow-up with PCP and oncologist as scheduled. Patient Disposition: HOME HEALTH SERVICE Condition: Stable Health Concerns: Post Hospitalization: new medications and changes needed to prevent readmission or further decline. Pt educated and given instructions on all concerns. Care Plan Goals: Problem: Respiratory Complications Goal: Improved Uncomplicated Respiratory Status Instructions: Follow provided instructions. Follow up with primary physician as directed. Contact primary care physician or report to the closest Emergency Room if condition worsens. Plan of Treatment: Continue with present treatment and follow up plan. Pt is to keep follow up appointment as instructed and take medications as ordered. Assessment: No distress noted. Prescription drug monitoring program results: PDMP reviewed and no concerns identified Prescriptions: New Eliquis 5 mg Tablet 5 mg PO BID 30 Days Qty: 60 0RF ipratropium-albuterol 0.5 mg-3 mg(2.5 mg base)/3 mL solution for nebulization 3 ml inhalation Q6H PRNQty: 90 0RF Continued prednisone 10 mg tablet 10 mg PO DAILY tamsulosin 0.4 mg capsule 0.4 mg PO QDAY sertraline 25 mg tablet 25 mg PO DAILY omeprazole 20 mg capsule,delayed release(DR/EC) 20 mg PO BID metoprolol tartrate 25 mg tablet 25 mg PO BID sucralfate 1 gram tablet 1 g PO TID Centrum Complete 18-400 mg-mcg Tablet 1 tab PO QDAY Spiriva Respimat 2.5 mcg/actuation Mist 2 puff INHALATION QDAY montelukast 10 mg Tablet 10 mg PO HS Qty: 30 0RF roflumilast [Daliresp] 500 mcg Tablet 500 mcg PO DAILY Qty: 30 0RF NebuSal 6 % solution for nebulization 3 ml TID Patient Comments: [NO ORIGINAL SIG] Dupixent Pen 300 mg/2 mL Pen Injector 300 mg SUBCUT Q2W Rx Instructions: TAKES EVERY OTHER SUNDAY potassium chloride 20 mEq Tablet,Er Particles/Crystals 10 meq PO Q OTHER DAY dronedarone 400 mg Tablet 400 mg PO BID metformin 500 mg Tablet 500 mg PO BID fluticasone propion-salmeterol [Wixela Inhub] 500-50 mcg/dose Blister With Device 1 inh INHALATION BID mecobalamin (vitamin B12) [B12 Active] 1,000 mcg Tablet,Chewable 1,000 mcg PO QDAY Discontinued Eliquis 2.5 mg Tablet 2.5 mg PO BID doxycycline monohydrate 100 mg capsule 100 mg PO BID Follow ups/Referrals Follow ups/Referrals: Lori [Other] Referral Note: Has Home oxygen, Portable oxygen and nebulizer prior to admission. DMITRIY OCONNOR [STAFF PHYSICIAN, Unknown] Referral Note: Notified of discharge. HARMONY UNGER [Primary Care Provider, Unknown] - 05/25/25 10:00 am Verenice Juarez [REFERRING, Unknown] Referral Note: Caregiver awaiting call back to schedule follow up LINO. Instructions Instructions: Bleeding Precautions When on Anticoagulant Therapy, Adult, Home Oxygen Use, Adult, Pulmonary Embolism, D-Dimer Test Activity Restrictions/Additional Instructions: Eliquis dose: take 10 mg twice a day for 5 more days and then take 5 mg twice a day. Monitor for any signs of bleeding. Follow up with PCP and oncology as scheduled Stand Alone Forms: Find Help Web Site, [facility] Follow Up Care Print Language: LATVIAN
[2025-05-27] MEDS ORDERED: DUPILUMAB 300 MG/2 ML SUBCUT ONE (09:00)
== END 2025-05-20 11:00 | disposition home health service (06) ==
LOC: MED/SURG 09:40 → ER 09:40 → MED/SURG 13:09
PROVIDERS: ADMIT Family Medicine; ATTEND Family Medicine
DX: R79.1 Abnormal coagulation profile; R53.1 Weakness; E83.42 Hypomagnesemia; J44.9 Chronic obstructive pulmonary disease, unspecified; R06.02 Shortness of breath; J43.8 Other emphysema; R26.81 Unsteadiness on feet; R27.8 Other lack of coordination; Z85.118 Personal history of other malignant neoplasm of bronchus and lung; I10 Essential (primary) hypertension; Z74.1 Need for assistance with personal care; I48.91 Unspecified atrial fibrillation; E11.65 Type 2 diabetes mellitus with hyperglycemia; C79.31 Secondary malignant neoplasm of brain; I26.99 Other pulmonary embolism without acute cor pulmonale; Z99.81 Dependence on supplemental oxygen; R94.31 Abnormal electrocardiogram [ECG] [EKG]